=== PATIENT | male | born 1985 ===

== ENCOUNTER 2023-05-05 14:59 | Outpatient (AMB) | payer MEDICARE, MEDICAID, SELFPAY ==
--- NOTE | 2023-05-05 15:16 | MHC.PC.OV ---
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 Accompanied by: Self / Same As Patient Allergies No Known Allergies [No Known Allergies*] Allergy (Verified 05/05/23 16:01) Medication List - Last Reconciled 05/05/23 by Rajinder Osborn MD blood sugar diagnostic (Accu-Chek Jodi Plus test strips) Test once Daily blood-glucose meter (Accu-Chek Jodi Plus Meter) test once daily clonidine HCl 1 tablet in AM and 2 tablets at bedtime PO 2 times a day; 30 days lancets once a day or as directed - Dx: E11.9 (diabetes) metformin 1,000 mg PO BID multivitamin (Daily-Graham tablet) 1 tab PO DAILY sitagliptin phosphate (Januvia) 100 mg PO DAILY Tobacco use date assessed: 05/05/23 Dental Screening Dental Screen Date: 05/05/23 Did you have a dental visit in the last 12 months?: Yes Did you have a dental problem in the last 6 months where you did not have access to dental care?: No Was dental information given to patient?: Patient has dentist HPI pe HPI Details Patient comes in today for his annual physical examination - is accompanied as usual by his father Patient is reportedly doing well with no acute issues His father is aware that patient has gained a lot of weight since his last visit and states that he has recently switched patient back over to a diet that mostly consists of vegetables and beans and some proteins; patient hardly eats meat now and he would actually refuse to eat meat when he is given some States that his blood sugar readings in the morning would usually be around 110 to 115 mg/dl and in the afternoon they will drop down into the 90s Patient has no complaints of headaches, dizziness, chest pains or SOB; has had no recent cough/cold symptoms No nausea/vomiting, no abdominal pain and no change in bowel habits noted - bowel movements have been regular He reportedly sleeps well at night and per his father, now sleeps through the night mostly He has had no follow up labs done since 2019, as we have not been able to get any labs on patient (he is unable to cooperate for blood draw) unless he is sedated - we will usually time this, as in the past, for when he needs to be sedated for any procedures, including dental procedures PFSH Medical History Obesity (BMI 30-39.9) Autism Vitamin D deficiency Mixed hyperlipidemia Diabetes mellitus Surgical History No pertinent past surgical history Family History Father Hyperlipidemia Hypertension Diabetes Mother Prediabetes Hyperlipidemia Hypertension History of carpal tunnel release Social History Housing: House Alcohol intake: never Patient Tobacco Use Status: Never used Tobacco e-Cigarette/Vaping Use: Never Used Second Hand Smoke Exposure: No service: No Current occupational status: disabled Cognitive needs: Yes (Autism) Hearing needs: No Vision needs: No Questionnaire PHQ-9 Over the last 2 weeks, how often have you been bothered by any of the following problems? 1. Little interest or pleasure in doing things: not at all 2. Feeling down, depressed, or hopeless: not at all 3. Trouble falling or staying asleep, or sleeping too much: not at all 4. Feeling tired or having little energy: not at all 5. Poor appetite or overeating: not at all 6. Feeling bad about yourself - or that you are a failure or have let yourself or your family down: not at all 7. Trouble concentrating on things, such as reading the newspaper or watching television: not at all 8. Moving or speaking so slowly that other people could have noticed. Or the opposite - being so fidgety or restless that you have been moving around a lot more than usual: not at all 9. Thoughts that you would be better off or of hurting yourself in some way: not at all Total score: 0 Depression Screening Interpretation: Negative Depression Screening Done: Yes 80648 - PHQ-9 Billing: Yes Source: Developed by Drs. Mat Gates, Dora Ortiz, Sterling Gilliam and colleagues, with an educational brianna from [employer]. Thrive Questionnaire Date Thrive assessed: 05/05/23 I am a: Parent/Caregiver What is your living situation today?: I have a steady place to live Within the past 12 months, did the food you bought not last and you didn't have the money to get more?: Never true Within the past 12 months, did you worry whether your food would run out before you got money to buy more?: Never true Do you have trouble paying for medicines?: No Do you have trouble getting transportation to medical appointments?: No Do you have trouble paying your heating and electricity bill?: No Do you have trouble taking care of your child, family member or friend?: No Do you have trouble with day-to-day activities such as bathing, preparing meals, shopping, managing finances, etc.?: No Are you currently unemployed and looking for a job?: No Are you interested in more education?: No Please select the resources that you would like help with: None Currently or been in a relationship where the following occur: no concerns reported AUDIT C Alcohol Use Questionnaire (AUDIT-C) 1. How often do you have a drink containing alcohol?: Never 3. How often do you have six or more drinks on one occasion?: Never Total Score: 0 Score Reviewed/Action Taken: Yes JODI-7 AMB Questionnaire JODI-7 Date JODI - 7 assessed: 05/05/23 Feeling nervous, anxious, or on edge: 0 = Not at all Not being able to stop or control worryin = Not at all Worrying too much about different things: 0 = Not at all Trouble relaxin = Not at all Being so restless that it is hard to sit still: 0 = Not at all Becoming easily annoyed or irritable: 0 = Not at all Feeling afraid as if something awful might happen: 0 = Not at all Total JODI-7 score (0-4 normal; 5-9 mild; 10-14 moderate; 15-21 severe): 0 Source: Developed by Drs. Mat Gates, Dora Ortiz, Sterling Gilliam and colleagues, with an educational brianna from [employer]. Review of Systems Const Details: ROS is limited and information is provided primarily by patient's family as he is unable to verbalize or communicate appropriately due to his psychiatric and cognitive issues Denies chills, Denies fatigue, Denies fever(s) and Denies headache(s) ENT Denies dysphagia, Denies dizziness, Denies otalgia, Denies headache(s), Denies mouth lesions, Denies nasal discharge and Denies sore throat Card Denies chest pain, Denies palpitations and Denies dyspnea Resp Denies cough and Denies dyspnea GI Denies abdominal pain, Denies constipation, Denies dysphagia, Denies diarrhea, Denies nausea and Denies vomiting Denies dysuria, Denies nocturia and Denies urinary frequency Musc Denies abnormal gait, Denies joint swelling and Denies muscle weakness Skin/Breast Denies lesions and Denies rash Neuro Denies abnormal gait, Denies dizziness and Denies headache(s) Psych Details: is autistic Endo Denies fatigue and Denies palpitations Physical exam (Primary Care) Tobacco/Smoking Status: Tobacco use Status Tobacco use date assessed 05/05/23 05/05/23 15:19 Patient Tobacco Use Status Never used Tobacco 05/05/23 15:19 e-Cigarette/Vaping Use Never Used 05/05/23 15:19 PHQ-9: PHQ-9 Score PHQ-9: Total score 0 05/05/23 16:05 Depression Screening Interpretation: Negative Thrive Assessment: Date of Thrive Assessment Date Thrive assessed 05/05/23 05/05/23 15:19 Currently or been in a relationship where the following occur: no concerns reported Const Other: Physical exam is also limited to what patient will allow us to do; he is unable to fully cooperate with exam due to his cognitive and psychiatric issues General: no acute distress and alert HENMT Head: Yes normal to inspection Ears: TM's normal bilaterally and EAC's normal Eyes Conjunctivae: conjunctivae normal Sclerae: sclerae normal Neck Neck: Yes no lymphadenopathy and Yes supple Lymphatic: no lymphadenopathy noted Resp Auscultation: clear to auscultation bilaterally, no rales and no wheezes Cardio Rate: regular rate Rhythm: regular rhythm Heart sounds: no murmurs GI Palpation (GI): Soft to palpation and nontender Auscultation: normal bowel sounds Skin Lesions: no lesions Rashes: no rashes Neuro General: moves all extremities and no focal motor deficits Cognition (Neuro): abnormal cognition (is autistic) Gait exam (Neuro): Normal gait present Extrem General: Yes no clubbing, cyanosis or edema Results AMB Hemoglobin A1c AMB Hemoglobin A1c 6.0 % Last Edit by Bernabe Zimmer on 05/05/23 16:08 Assessment and Plan Assessment & Plan (1) Annual physical exam: Code(s): Z00.00 - Encounter for general adult medical examination without abnormal findings Plan: Has no follow up labs done in a few years now Will order these and try to get some labs done whenever he is scheduled to go under anesthesia for any procedures - family will notify us to place lab orders then Patient's family states that he is doing well and they have no acute concerns or issues regarding him at this time (2) Diabetes mellitus: Code(s): E11.9 - Type 2 diabetes mellitus without complications Qualifiers: Diabetes mellitus type: type 2 Diabetes mellitus terminal operations manager insulin use: without retirement use Diabetes mellitus complication status: without complication Qualified Code(s): E11.9 - Type 2 diabetes mellitus without complications Plan: Per patient's father, his FBS in the morning has been running mostly between 105 to 110 mg/dl lately In-office HgbA1c done today is at 6.0% (was at 5.4% a few months ago; HgbA1c reading was at 5.8% when previously checked in 2019) Reinforced diabetic diet Continue Metformin 1000 mg BID and Januvia 100 mg QD (Rx refilled) Follow up with endocrinology as scheduled (3) Mixed hyperlipidemia: Code(s): E78.2 - Mixed hyperlipidemia Plan: Reinforced low cholesterol diet Has not had any follow up labs done over the past few years now - patient is not able to cooperate for his lab draws and we can only get his labs done whenever he needs to be sedated for some procedure Family is aware to contact us for lab orders if he gets scheduled for any procedures in the future that he will be sedated for (4) Vitamin D deficiency: Code(s): E55.9 - Vitamin D deficiency, unspecified Plan: Will recheck his Vitamin D level whenever possible (5) Autism: Code(s): F84.0 - Autistic disorder Plan: Continue Clonidine 0.2 mg 1 tablet in AM and 2 tablets at bedtime Follow up with psychiatry as scheduled (6) Obesity (BMI 30-39.9): Code(s): E66.9 - Obesity, unspecified Plan: Reinforced diet/exercise as tolerated/lose weight - family is to help him with this Unable to weigh patient today as he was not willing to step on the scale Plan Follow up in 6 months Orders: Orders AMB Hemoglobin A1c Today Z13.9 - Encounter for screening, unspecified Medications: Refilled sitagliptin phosphate (Januvia) 100 mg PO DAILY 90 tabs 1RF E11.9 - Type 2 diabetes mellitus without complications Coding Level of Care Code Est Pt Prev Care 18-39y(07342) Diagnoses Annual physical exam Z00.00 Type 2 diabetes mellitus without complication, without long-term current use of insulin E11.9 Diabetes mellitus type: type 2 Diabetes mellitus retirement insulin use: without retirement use Diabetes mellitus complication status: without complication Mixed hyperlipidemia E78.2 Vitamin D deficiency E55.9 Autism F84.0 Obesity (BMI 30-39.9) E66.9
== END 2023-05-05 16:09 | disposition home or self-care (01) ==
PROVIDERS: Visit Provider Internal Medicine
DX: Z00.00 Encounter for general adult medical examination without abnormal findings (principal); E11.9 Type 2 diabetes mellitus without complications; E78.2 Mixed hyperlipidemia; E55.9 Vitamin D deficiency, unspecified; F84.0 Autistic disorder
CPT/HCPCS: 83036; 99395

== ENCOUNTER 2023-11-05 15:10 | Outpatient (AMB) | payer MEDICARE, MEDICAID, SELFPAY ==
--- NOTE | 2023-11-05 15:22 | MHC.PC.OV ---
Vital Signs 11/05/23 15:24 Height 5 ft 2.99 in Weight 250 lb BMI 44.3 Pulse 100 Pulse Source Pulse Oximeter Pulse Oximetry (%) 97 Oxygen Delivery Method Room Air Intake Visit Reasons: DM, hyperlipidemia, autism Real Estate Office Manager Required: No Accompanied by: Father Allergies No Known Allergies [No Known Allergies*] Allergy (Verified 11/05/23 15:44) Medication List - Last Reconciled 11/05/23 by Rajinder Osborn MD blood sugar diagnostic (FreeStyle Lite Strips) As directed clonidine HCl 1 tablet in AM and 2 tablets at bedtime PO 2 times a day; 30 days lancets once a day or as directed - Dx: E11.9 (diabetes) lancets (FreeStyle Lancets) USE TO TEST BLOOD SUGAR TWICE DAILY DIRECTED metformin 1,000 mg PO BID multivitamin (Daily-Graham tablet) 1 tab PO DAILY sitagliptin phosphate (Januvia) 100 mg PO DAILY Tobacco use date assessed: 11/05/23 Dental Screening Dental Screen Date: 11/05/23 Did you have a dental visit in the last 12 months?: Yes Did you have a dental problem in the last 6 months where you did not have access to dental care?: No Was dental information given to patient?: Patient has dentist HPI DM, hyperlipidemia, autism HPI Details Patient comes in today for his follow up visit - he is accompanied, as usual, by his father, who is his HCP Patient is reportedly doing well with no acute issues His father states that patient has had no complaints of headaches, dizziness, chest pains or SOB lately and he's had no recent cough/cold symptoms No nausea/vomiting, no abdominal pain and no change in bowel habits noted - his bowel movements have been regular He's had no follow up labs done since 2019, as we have not been able to get any labs on patient (he is unable to cooperate for blood draw) unless he is sedated - we will usually time this, as in the past, for when he needs to be sedated for any procedures, including dental procedures He needs his Metformin and Januvia Rx refilled today [facility] Medical History Obesity (BMI 30-39.9) Autism Vitamin D deficiency Mixed hyperlipidemia Diabetes mellitus Surgical History No pertinent past surgical history Family History Father Hyperlipidemia Hypertension Diabetes Mother Prediabetes Hyperlipidemia Hypertension History of carpal tunnel release Social History Housing: House Alcohol intake: never Patient Tobacco Use Status: Never used Tobacco e-Cigarette/Vaping Use: Never Used Second Hand Smoke Exposure: No service: No Current occupational status: disabled Cognitive needs: Yes (Autism) Hearing needs: No Vision needs: No Questionnaire PHQ-9 Over the last 2 weeks, how often have you been bothered by any of the following problems? 1. Little interest or pleasure in doing things: not at all 2. Feeling down, depressed, or hopeless: not at all 3. Trouble falling or staying asleep, or sleeping too much: not at all 4. Feeling tired or having little energy: not at all 5. Poor appetite or overeating: not at all 6. Feeling bad about yourself - or that you are a failure or have let yourself or your family down: not at all 7. Trouble concentrating on things, such as reading the newspaper or watching television: not at all 8. Moving or speaking so slowly that other people could have noticed. Or the opposite - being so fidgety or restless that you have been moving around a lot more than usual: not at all 9. Thoughts that you would be better off or of hurting yourself in some way: not at all Total score: 0 Depression Screening Interpretation: Negative Depression Screening Done: Yes 77480 - PHQ-9 Billing: Yes Source: Developed by Drs. Mat Gaets, Dora Ortiz, Sterling Gilliam and colleagues, with an educational brianna from [employer]. Thrive Questionnaire Date Thrive assessed: 11/05/23 I am a: Patient What is your living situation today?: I have a steady place to live Within the past 12 months, did the food you bought not last and you didn't have the money to get more?: Never true Within the past 12 months, did you worry whether your food would run out before you got money to buy more?: Never true Do you have trouble paying for medicines?: No Do you have trouble getting transportation to medical appointments?: No Do you have trouble paying your heating and electricity bill?: No Do you have trouble taking care of your child, family member or friend?: No Do you have trouble with day-to-day activities such as bathing, preparing meals, shopping, managing finances, etc.?: No Are you currently unemployed and looking for a job?: No Are you interested in more education?: No Please select the resources that you would like help with: None Currently or been in a relationship where the following occur: no concerns reported THRIVE Score: 0 AUDIT C Alcohol Use Questionnaire (AUDIT-C) 1. How often do you have a drink containing alcohol?: Never 3. How often do you have six or more drinks on one occasion?: Never Total Score: 0 Score Reviewed/Action Taken: Yes JODI-7 AMB Questionnaire JODI-7 Date JODI - 7 assessed: 11/05/23 Feeling nervous, anxious, or on edge: 0 = Not at all Not being able to stop or control worryin = Not at all Worrying too much about different things: 0 = Not at all Trouble relaxin = Not at all Being so restless that it is hard to sit still: 0 = Not at all Becoming easily annoyed or irritable: 0 = Not at all Feeling afraid as if something awful might happen: 0 = Not at all Total JODI-7 score (0-4 normal; 5-9 mild; 10-14 moderate; 15-21 severe): 0 Source: Developed by Drs. Mat Gates, Dora Otriz, Sterling Gilliam and colleagues, with an educational brianna from [employer]. JODI-7 Assessment Billing JODI-7 Assessment Tool: JODI-7 Assessment 56555 Review of Systems Const Details: ROS is limited and information is provided primarily by patient's family as he is unable to verbalize or communicate appropriately due to his psychiatric and cognitive issues Denies chills, Denies fatigue, Denies fever(s) and Denies headache(s) ENT Denies dysphagia, Denies dizziness, Denies headache(s), Denies nasal discharge and Denies sore throat Card Denies chest pain, Denies palpitations and Denies dyspnea Resp Denies cough and Denies dyspnea GI Denies abdominal pain, Denies constipation, Denies dysphagia, Denies diarrhea, Denies nausea and Denies vomiting Denies dysuria, Denies nocturia and Denies urinary frequency Musc Denies abnormal gait, Denies joint swelling and Denies muscle weakness Skin/Breast Denies lesions and Denies rash Neuro Denies abnormal gait, Denies dizziness and Denies headache(s) Psych Details: is autistic Endo Denies fatigue and Denies palpitations Physical exam (Primary Care) Vital Signs: Last Vital Signs Pulse 100 11/05/23 15:24 Pulse Ox 97 11/05/23 15:24 Oxygen Delivery Method Room Air 11/05/23 15:24 BMI result Body Mass Index 44.3 Tobacco/Smoking Status: Tobacco use Status Tobacco use date assessed 11/05/23 11/05/23 15:32 Patient Tobacco Use Status Never used Tobacco 11/05/23 15:22 e-Cigarette/Vaping Use Never Used 11/05/23 15:22 PHQ-9: PHQ-9 Score PHQ-9: Total score 0 11/05/23 15:53 Depression Screening Interpretation: Negative Thrive Assessment: Date of Thrive Assessment Date Thrive assessed 11/05/23 11/05/23 15:32 Currently or been in a relationship where the following occur: no concerns reported Const Other: Physical exam is also limited to what patient will allow us to do; he is unable to fully cooperate with exam due to his cognitive and psychiatric issues General: no acute distress and alert HENMT Head: Yes normal to inspection Ears: TM's normal bilaterally and EAC's normal Eyes Conjunctivae: conjunctivae normal Sclerae: sclerae normal Neck Neck: Yes no lymphadenopathy and Yes supple Lymphatic: no lymphadenopathy noted Resp Auscultation: clear to auscultation bilaterally, no rales and no wheezes Cardio Rate: regular rate Rhythm: regular rhythm Heart sounds: no murmurs GI Palpation (GI): Soft to palpation and nontender Auscultation: normal bowel sounds Skin Lesions: no lesions Rashes: no rashes Neuro General: moves all extremities and no focal motor deficits Cognition (Neuro): abnormal cognition (is autistic) Gait exam (Neuro): Normal gait present Extrem General: Yes no clubbing, cyanosis or edema Results AMB Hemoglobin A1c AMB Hemoglobin A1c 6.9 % Last Edit by CRICKET Pavon on 11/05/23 15:56 Assessment and Plan Assessment & Plan (1) Diabetes mellitus: Code(s): E11.9 - Type 2 diabetes mellitus without complications Qualifiers: Diabetes mellitus type: type 2 Diabetes mellitus exterminator helper termite insulin use: without exterminator helper termite use Diabetes mellitus complication status: without complication Qualified Code(s): E11.9 - Type 2 diabetes mellitus without complications Plan: In-office HgbA1c done today is at 6.9% (was at 6.0% a few months ago) - goal is at least <7.0% Reinforced diabetic diet Continue Metformin 1000 mg BID and Januvia 100 mg QD (Rx refilled) Follow up with endocrinology as scheduled (2) Mixed hyperlipidemia: Code(s): E78.2 - Mixed hyperlipidemia Plan: Reinforced low cholesterol diet Has not had any follow up labs done over the past few years now - patient is not able to cooperate for his lab draws and we can only get his labs done whenever he needs to be sedated for some procedure Family is aware to contact us for lab orders if he gets scheduled for any procedures in the future that he will be sedated for (3) Vitamin D deficiency: Code(s): E55.9 - Vitamin D deficiency, unspecified Plan: Will recheck his Vitamin D level whenever it is possible to get labs done on him (4) Autism: Code(s): F84.0 - Autistic disorder Plan: Continue Clonidine 0.2 mg 1 tablet in AM and 2 tablets at bedtime Follow up with psychiatry as scheduled (5) Obesity (BMI 30-39.9): Code(s): E66.9 - Obesity, unspecified Plan: Reinforced diet/exercise as tolerated/lose weight - family is to help him with this Unable to weigh patient today as he was not willing to step on the scale Plan To return in 6 months for his next annual physical examination Orders: Orders AMB Hemoglobin A1c Today E11.9 - Type 2 diabetes mellitus without complications Medications: Refilled sitagliptin phosphate (Januvia) 100 mg PO DAILY 90 tabs 1RF E11.9 - Type 2 diabetes mellitus without complications metformin 1,000 mg PO BID 180 tabs 1RF E11.9 - Type 2 diabetes mellitus without complications Coding Level of Care Code Est Pt Level 3 (09813) Diagnoses Type 2 diabetes mellitus without complication, without long-term current use of insulin E11.9 Diabetes mellitus type: type 2 Diabetes mellitus exterminator helper termite insulin use: without exterminator helper termite use Diabetes mellitus complication status: without complication Mixed hyperlipidemia E78.2 Vitamin D deficiency E55.9 Autism F84.0 Obesity (BMI 30-39.9) E66.9 Additional Codes JODI-7 Assessment Billing - JODI-7 Assessment Tool: JODI-7 Assessment [id number] ([id number])
[2023-11-05 15:24] VITALS: PULSE 100; O2SAT 97; BMI 44.3
== END 2023-11-05 16:04 | disposition home or self-care (01) ==
PROVIDERS: PCP Internal Medicine; Visit Provider Internal Medicine
DX: E11.69 Type 2 diabetes mellitus with other specified complication (principal); Z68.41 Body mass index [BMI] 40.0-44.9, adult; E78.2 Mixed hyperlipidemia; E66.9 Obesity, unspecified; E55.9 Vitamin D deficiency, unspecified; F84.0 Autistic disorder
CPT/HCPCS: 83036; 99213

== ENCOUNTER 2024-05-08 12:21 | Outpatient (AMB) | payer MEDICARE, MEDICAID, SELFPAY ==
[2024-05-08 12:20] VITALS: PULSE 112; O2SAT 94; BMI 46.1
--- NOTE | 2024-05-08 12:20 | MHC.PC.OV ---
Vital Signs 05/08/24 12:20 Height 5 ft 2.99 in Weight 260 lb BMI 46.1 Pulse 112 H Pulse Source Pulse Oximeter Pulse Oximetry (%) 94 Oxygen Delivery Method Room Air Intake Visit Reasons: pe Intake Note: Patient is here today for a physical. Shake Packer Required: No Accompanied by: Self / Same As Patient Allergies No Known Allergies [No Known Allergies*] Allergy (Verified 05/08/24 12:42) Medication List - Last Reconciled 05/08/24 by Rajinder Osborn MD blood sugar diagnostic (FreeStyle Lite Strips) As directed clonidine HCl 1 tablet in AM and 2 tablets at bedtime PO 2 times a day; 30 days lancets once a day or as directed - Dx: E11.9 (diabetes) lancets (FreeStyle Lancets) USE TO TEST BLOOD SUGAR TWICE DAILY DIRECTED metformin 1,000 mg PO BID multivitamin (Daily-Graham tablet) 1 tab PO DAILY sitagliptin phosphate (Januvia) 100 mg PO DAILY Tobacco use date assessed: 11/05/23 Dental Screening Dental Screen Date: 11/05/23 HPI pe HPI Details Patient comes in today for his annual physical examination - is accompanied as usual by his father His father states that patient is doing well overall and that his FBS earlier this morning around 5:30 am was at 127 mg/dl We have not been able to get patient to go for labs over the years other than an occasional in-office HgbA1c if he allows it due to his psychiatric/cognitive dysfunction He appears very preoccupied and obsessed with a loose wire hanging out from the exam table in the exam room today and will not calm down or quiet down until the wire is put away properly and out of sight Patient is otherwise reportedly doing well, per his father States that he spent a lot of time in the pool during the summer but now that the weather is colder and the pools are closed, he spends most of his time in his bedroom playing on his own (no electronics or computers) Patient has not had any issues with acute headaches or dizziness lately Has had no complaints of chest pains and has not been noticed to have any SOB or respiratory issues States that patient eats well and has not had any abdominal complaints; he reportedly moves his bowels regularly and has had no acute urinary issues He will need his Metformin and Januvia Rx refilled today [facility] Medical History (Updated 05/08/24 @ 12:54 by Rajinder Osborn MD) Morbid obesity with BMI of 45.0-49.9, adult Obesity (BMI 30-39.9) Autism Vitamin D deficiency Mixed hyperlipidemia Diabetes mellitus Surgical History No pertinent past surgical history Family History Father Hyperlipidemia Hypertension Diabetes Mother Prediabetes Hyperlipidemia Hypertension History of carpal tunnel release Social History Housing: House Alcohol intake: never Patient Tobacco Use Status: Never used Tobacco e-Cigarette/Vaping Use: Never Used Second Hand Smoke Exposure: No service: No Current occupational status: disabled Cognitive needs: Yes (Autism) Hearing needs: No Vision needs: No Questionnaire Thrive Questionnaire Date Thrive assessed: 11/05/23 JODI-7 AMB Questionnaire JODI-7 Date JODI - 7 assessed: 11/05/23 Source: Developed by Drs. Mat Gates, Dora Ortiz, Sterling Gilliam and colleagues, with an educational brianna from [employer]. Review of Systems Const Details: ROS is limited and information is provided primarily by patient's father/family as he is unable to verbalize or communicate appropriately due to his psychiatric and cognitive issues Denies chills, Denies difficulty sleeping, Denies fatigue, Denies fever(s) and Denies headache(s) ENT Denies dysphagia, Denies dizziness, Denies otalgia, Denies headache(s), Denies mouth lesions, Denies nasal discharge and Denies sore throat Card Denies chest pain, Denies palpitations and Denies dyspnea Resp Denies chest congestion, Denies cough and Denies dyspnea GI Denies abdominal pain, Denies constipation, Denies dysphagia, Denies diarrhea, Denies nausea and Denies vomiting Denies dysuria, Denies nocturia and Denies urinary frequency Musc Denies abnormal gait, Denies joint swelling and Denies muscle weakness Skin/Breast Denies lesions and Denies rash Neuro Denies abnormal gait, Denies behavioral changes, Denies dizziness and Denies headache(s) Psych Details: is autistic Denies behavioral changes Endo Denies fatigue and Denies palpitations Physical exam (Primary Care) Vital Signs: Last Vital Signs Pulse 112 H 05/08/24 12:20 Pulse Ox 94 05/08/24 12:20 Oxygen Delivery Method Room Air 05/08/24 12:20 BMI result Body Mass Index 46.1 Tobacco/Smoking Status: Tobacco use Status Tobacco use date assessed 11/05/23 05/08/24 12:25 Patient Tobacco Use Status Never used Tobacco 05/08/24 12:25 e-Cigarette/Vaping Use Never Used 05/08/24 12:25 Thrive Assessment: Date of Thrive Assessment Date Thrive assessed 11/05/23 05/08/24 12:25 Const Other: Physical exam is also limited to what patient will allow us to do; he is unable to fully cooperate with exam due to his cognitive and psychiatric issues General: no acute distress and alert Limitations: behavioral limitations (is autistic) HENMT Head: Yes normal to inspection Ears: TM's normal bilaterally and EAC's normal Eyes Conjunctivae: conjunctivae normal Sclerae: sclerae normal Neck Neck: Yes no lymphadenopathy and Yes supple Lymphatic: no lymphadenopathy noted Resp Auscultation: clear to auscultation bilaterally, no rales and no wheezes Cardio Rate: regular rate Rhythm: regular rhythm Heart sounds: no murmurs GI Palpation (GI): Soft to palpation and nontender Auscultation: normal bowel sounds Skin Lesions: no lesions Rashes: no rashes Neuro General: moves all extremities and no focal motor deficits Cognition (Neuro): abnormal cognition (is autistic) Gait exam (Neuro): Normal gait present Extrem General: Yes no clubbing, cyanosis or edema Coding Level of Care Code Est Pt Prev Care 40-64y(78200) Diagnoses Annual physical exam Z00.00 Type 2 diabetes mellitus without complication, without long-term current use of insulin E11.9 Diabetes mellitus type: type 2 Diabetes mellitus terminal carman insulin use: without usp use Diabetes mellitus complication status: without complication Mixed hyperlipidemia E78.2 Vitamin D deficiency E55.9 Autism F84.0 Morbid obesity with BMI of 45.0-49.9, adult E66.01; Z68.42 Assessment & Plan Assessment & Plan (1) Annual physical exam: Code(s): Z00.00 - Encounter for general adult medical examination without abnormal findings Category: Medical Plan: We have not been able to get any labs done on patient over the years as he is unable to cooperate due to his cognitive issues - he would not allow any blood draw and is not able to sit still for labs to be drawn (2) Diabetes mellitus: Code(s): E11.9 - Type 2 diabetes mellitus without complications Category: Medical Qualifiers: Diabetes mellitus type: type 2 Diabetes mellitus terminal carman insulin use: without terminal carman use Diabetes mellitus complication status: without complication Qualified Code(s): E11.9 - Type 2 diabetes mellitus without complications Plan: He would not allow in-office HgbA1c to be done today; this was at 6.9% back in the spring of this year and 6.0% last year - goal is at least <7.0% Reinforced diabetic diet Continue Metformin 1000 mg BID and Januvia 100 mg QD (Rx refilled) Follow up with endocrinology as scheduled (3) Mixed hyperlipidemia: Code(s): E78.2 - Mixed hyperlipidemia Category: Medical Plan: Reinforced low cholesterol diet Has not had any follow up labs done over the past few years, as patient is not able to cooperate for his lab draws and we can only get his labs done whenever he needs to be sedated for some procedure Family is aware to contact us for lab orders if he gets scheduled for any procedures in the future that he will be sedated for (4) Vitamin D deficiency: Code(s): E55.9 - Vitamin D deficiency, unspecified Category: Medical Plan: Will recheck his Vitamin D level whenever it is possible to get labs done on him (5) Autism: Code(s): F84.0 - Autistic disorder Category: Medical Plan: Continue Clonidine 0.2 mg 1 tablet in AM and 2 tablets at bedtime Follow up with psychiatry as scheduled (6) Morbid obesity with BMI of 45.0-49.9, adult: Code(s): E66.01 - Morbid (severe) obesity due to excess calories; Z68.42 - Body mass index [BMI] 45.0-49.9, adult Category: Medical Plan: Reinforced diet/exercise as tolerated/lose weight - have reminded his family to help him with this as he himself is not expected to be able to do on his own due to his cognitive and psychiatric issues and he has gained weight again over the past year or so Plan Follow up in 6 months Medications: Refilled metformin 1,000 mg PO BID 180 tabs 1RF E11.9 - Type 2 diabetes mellitus without complications sitagliptin phosphate (Januvia) 100 mg PO DAILY 90 tabs 1RF E11.9 - Type 2 diabetes mellitus without complications
== END 2024-05-08 12:45 | disposition home or self-care (01) ==
LOC: HO.HMCH 12:21
PROVIDERS: PCP Internal Medicine; Visit Provider Internal Medicine
DX: Z00.00 Encounter for general adult medical examination without abnormal findings (principal); E11.9 Type 2 diabetes mellitus without complications; E66.01 Morbid (severe) obesity due to excess calories; Z68.42 Body mass index [BMI] 45.0-49.9, adult; E78.2 Mixed hyperlipidemia; E55.9 Vitamin D deficiency, unspecified; F84.0 Autistic disorder

== ENCOUNTER → 2024-05-08 12:21 | Outpatient (BNVA) | payer MEDICARE, MEDICAID, SELFPAY | PROVIDERS: PCP Internal Medicine; Visit Provider Internal Medicine | DX: Z00.00 Encounter for general adult medical examination without abnormal findings (principal); E11.9 Type 2 diabetes mellitus without complications; E78.2 Mixed hyperlipidemia; E55.9 Vitamin D deficiency, unspecified; F84.0 Autistic disorder; E66.01 Morbid (severe) obesity due to excess calories; Z68.42 Body mass index [BMI] 45.0-49.9, adult; Z71.3 Dietary counseling and surveillance | CPT/HCPCS: 99396 ==

== ENCOUNTER 2024-11-06 10:04 | Outpatient (AMB) | payer MEDICARE, MEDICAID, SELFPAY ==
[2024-11-06 10:07] VITALS: BMI 48.6
--- NOTE | 2024-11-06 10:07 | A.OFFPC_ITS ---
Vital Signs 11/06/24 10:07 Height 5 ft 2 in Weight 266 lb BMI 48.6 Intake Visit Reasons: DM, hyperlipidemia, autism Allergies No Known Allergies [No Known Allergies*] Allergy (Verified 11/06/24 10:30) Medication List - Last Reconciled 11/06/24 by Rajinder Osborn MD blood sugar diagnostic (FreeStyle Lite Strips) As directed TWICE A DAY clonidine HCl 1 tablet in AM and 2 tablets at bedtime PO 2 times a day; 30 days lancets once a day or as directed - Dx: E11.9 (diabetes) lancets (FreeStyle Lancets) USE TO TEST BLOOD SUGAR TWICE DAILY DIRECTED metformin 1,000 mg PO BID multivitamin (Daily-Graham tablet) 1 tab PO DAILY sitagliptin phosphate (Januvia) 100 mg PO DAILY Tobacco use date assessed: 11/06/24 Dental Screening Dental Screen Date: 11/06/24 Did you have a dental visit in the last 12 months?: Yes Did you have a dental problem in the last 6 months where you did not have access to dental care?: No Was dental information given to patient?: Patient has dentist HPI DM, hyperlipidemia, autism HPI Details Patient comes in today for his follow up visit - is accompanied as usual by his father His father states that patient is doing well overall His father states that his blood sugar readings have been good overall but he has noticed that patient's blood sugar readings are often better in the afternoon than in the direct support professional - was at 127 mg/dl earlier this morning Patient is otherwise reportedly doing well, per his father States that he spends most of his time in his bedroom playing on his own (no electronics or computers) Patient has not had any issues with acute headaches or dizziness and he's had no complaints of any chest pains He has not had any SOB or respiratory issues/symptoms lately States that patient eats well and has not had any abdominal complaints; he reportedly moves his bowels regularly We have not been able to get patient to go for labs over the years other than an occasional in-office HgbA1c if he allows it due to his psychiatric/cognitive dysfunction COUNTS INCLUDE 234 BEDS AT THE [facility] Medical History Morbid obesity with BMI of 45.0-49.9, adult Obesity (BMI 30-39.9) Autism Vitamin D deficiency Mixed hyperlipidemia Diabetes mellitus Surgical History No pertinent past surgical history Family History Father Hyperlipidemia Hypertension Diabetes Mother Prediabetes Hyperlipidemia Hypertension History of carpal tunnel release Social History Housing: House Alcohol intake: never Patient Tobacco Use Status: Never used Tobacco Tobacco use type: Cigarette e-Cigarette/Vaping Use: Never Used Second Hand Smoke Exposure: No service: No Current occupational status: disabled Cognitive needs: Yes (Autism) Hearing needs: No Vision needs: No Questionnaire PHQ-9 Over the last 2 weeks, how often have you been bothered by any of the following problems? 1. Little interest or pleasure in doing things: not at all 2. Feeling down, depressed, or hopeless: not at all 3. Trouble falling or staying asleep, or sleeping too much: not at all 4. Feeling tired or having little energy: not at all 5. Poor appetite or overeating: not at all 6. Feeling bad about yourself - or that you are a failure or have let yourself or your family down: not at all 7. Trouble concentrating on things, such as reading the newspaper or watching television: not at all 8. Moving or speaking so slowly that other people could have noticed. Or the opposite - being so fidgety or restless that you have been moving around a lot more than usual: not at all 9. Thoughts that you would be better off or of hurting yourself in some way: not at all Total score: 0 Depression Screening Interpretation: Negative Depression Screening Done: Yes 71440 - PHQ-9 Billing: Yes Source: Developed by Drs. Mat Gates, Dora Ortiz, Sterling Gilliam and colleagues, with an educational brianna from [employer]. Thrive Questionnaire Date Thrive assessed: 11/06/24 I am a: Parent/Caregiver What is your living situation today?: I have a steady place to live Within the past 12 months, did the food you bought not last and you didn't have the money to get more?: Never true Within the past 12 months, did you worry whether your food would run out before you got money to buy more?: Never true Do you have trouble paying for medicines?: No Do you have trouble getting transportation to medical appointments?: No Do you have trouble paying your heating and electricity bill?: No Do you have trouble taking care of your child, family member or friend?: No Do you have trouble with day-to-day activities such as bathing, preparing meals, shopping, managing finances, etc.?: No Are you currently unemployed and looking for a job?: No Are you interested in more education?: No Currently or been in a relationship where the following occur: I choose not to answer THRIVE Score: 0 AUDIT C Alcohol Use Questionnaire (AUDIT-C) 1. How often do you have a drink containing alcohol?: Never 3. How often do you have six or more drinks on one occasion?: Never Total Score: 0 Score Reviewed/Action Taken: Yes JODI-7 AMB Questionnaire JODI-7 Date JODI - 7 assessed: 11/06/24 Feeling nervous, anxious, or on edge: 1 = Several days Not being able to stop or control worryin = Not at all Worrying too much about different things: 0 = Not at all Trouble relaxin = Several days Being so restless that it is hard to sit still: 1 = Several days Becoming easily annoyed or irritable: 1 = Several days Feeling afraid as if something awful might happen: 0 = Not at all Total JODI-7 score (0-4 normal; 5-9 mild; 10-14 moderate; 15-21 severe): 4 Source: Developed by Drs. Mat Gates, Dora Ortiz, Sterling Gilliam and colleagues, with an educational brianna from [employer]. JODI-7 Assessment Billing JODI-7 Assessment Tool: JODI-7 Assessment 98817 Review of Systems Const Details: ROS is limited and information is provided primarily by patient's father/family as he is unable to verbalize or communicate appropriately due to his psychiatric and cognitive issues Denies chills, Denies difficulty sleeping, Denies fatigue, Denies fever(s) and Denies headache(s) ENT Denies dysphagia, Denies dizziness, Denies otalgia, Denies headache(s), Denies neck pain, Denies odynophagia and Denies sore throat Card Denies chest pain, Denies palpitations and Denies dyspnea Resp Denies chest congestion, Denies cough and Denies dyspnea GI Denies abdominal pain, Denies constipation, Denies dysphagia, Denies diarrhea, Denies nausea, Denies odynophagia and Denies vomiting Denies dysuria, Denies nocturia and Denies urinary frequency Musc Denies abnormal gait, Denies back pain, Denies joint swelling, Denies muscle weakness and Denies neck pain Skin/Breast Denies lesions and Denies rash Neuro Denies abnormal gait, Denies behavioral changes, Denies dizziness and Denies headache(s) Psych Details: is autistic Denies behavioral changes Endo Denies fatigue and Denies palpitations Physical exam (Primary Care) BMI result Body Mass Index 48.6 Tobacco/Smoking Status: Tobacco use Status Tobacco use date assessed 11/06/24 11/06/24 10:12 Patient Tobacco Use Status Never used Tobacco 11/06/24 10:12 Tobacco use type Cigarette 11/06/24 10:12 e-Cigarette/Vaping Use Never Used 11/06/24 10:12 PHQ-9: PHQ-9 Score PHQ-9: Total score 0 11/06/24 10:39 Depression Screening Interpretation: Negative Thrive Assessment: Date of Thrive Assessment Date Thrive assessed 11/06/24 11/06/24 10:12 Currently or been in a relationship where the following occur: I choose not to answer Const Other: Physical exam is also limited to what patient will allow us to do; he is unable to fully cooperate with exam due to his cognitive and psychiatric issues General: no acute distress and alert Limitations: behavioral limitations (is autistic) [facility] Head: Yes normal to inspection Ears: TM's normal bilaterally and EAC's normal Eyes Conjunctivae: conjunctivae normal Sclerae: sclerae normal Neck Neck: Yes no lymphadenopathy and Yes supple Lymphatic: no lymphadenopathy noted Resp Auscultation: clear to auscultation bilaterally, no rales and no wheezes Cardio Rate: regular rate Rhythm: regular rhythm Heart sounds: no murmurs GI Palpation (GI): Soft to palpation and nontender Auscultation: normal bowel sounds Skin Rashes: no rashes Neuro General: moves all extremities and no focal motor deficits Cognition (Neuro): abnormal cognition (is autistic) Gait exam (Neuro): Normal gait present Extrem General: Yes no clubbing, cyanosis or edema Results AMB Hemoglobin A1c AMB Hemoglobin A1c 8.0 % Last Edit by RICHARD Reno on 11/06/24 10 :42 Coding Level of Care Code Est Pt Level 4 (62355) Diagnoses Type 2 diabetes mellitus without complication, without long-term current use of insulin E11.9 Diabetes mellitus type: type 2 Diabetes mellitus half-way insulin use: without half-way use Diabetes mellitus complication status: without complication Mixed hyperlipidemia E78.2 Vitamin D deficiency E55.9 Autism F84.0 Morbid obesity with BMI of 45.0-49.9, adult E66.01; Z68.42 Additional Codes JODI-7 Assessment Billing - JODI-7 Assessment Tool: JODI-7 Assessment 17722 ([id number]) PHQ-9 - 13939 - PHQ-9 Billing: Yes ([id number]) Assessment & Plan Assessment & Plan (1) Diabetes mellitus: Code(s): E11.9 - Type 2 diabetes mellitus without complications Category: Medical Qualifiers: Diabetes mellitus type: type 2 Diabetes mellitus half-way insulin use: without half-way use Diabetes mellitus complication status: without complication Qualified Code(s): E11.9 - Type 2 diabetes mellitus without complications Plan: In-office HgbA1c done today is at 8.0%; this was at 6.9% a year ago in October 2023 and 6.0% a couple of years ago - goal is at least <7.0% Reinforced diabetic diet Continue Metformin 1000 mg BID and Januvia 100 mg QD Will start him additionally on Glimepiride 2 mg Q AM (2) Mixed hyperlipidemia: Code(s): E78.2 - Mixed hyperlipidemia Category: Medical Plan: Reinforced low cholesterol diet Has not had any follow up labs done over the past few years, as patient is not able to cooperate for his lab draws and we can only get his labs done whenever he needs to be sedated for some procedure Family is aware to contact us for lab orders if he gets scheduled for any procedures in the future that he will need to be sedated for (3) Vitamin D deficiency: Code(s): E55.9 - Vitamin D deficiency, unspecified Category: Medical Plan: Will recheck his Vitamin D level whenever it is possible to get labs done on him (4) Autism: Code(s): F84.0 - Autistic disorder Category: Medical Plan: Continue Clonidine 0.2 mg 1 tablet in AM and 2 tablets at bedtime Follow up with psychiatry as scheduled (5) Morbid obesity with BMI of 45.0-49.9, adult: Code(s): E66.01 - Morbid (severe) obesity due to excess calories; Z68.42 - Body mass index [BMI] 45.0-49.9, adult Category: Medical Plan: Reinforced diet/exercise as tolerated/lose weight - have reminded his family to help him with this as he himself is not expected to be able to do on his own due to his cognitive and psychiatric issues Plan To return in 6 months for his next annual physical examination Orders: Orders AMB Hemoglobin A1c Today Z13.9 - Encounter for screening, unspecified Medications: New glimepiride administer with breakfast 2 mg PO QAM 90 days 90 tabs 1RF
== END 2024-11-06 10:40 | disposition home or self-care (01) ==
LOC: HO.HMCH 10:04
PROVIDERS: PCP Internal Medicine; Visit Provider Internal Medicine
DX: E11.9 Type 2 diabetes mellitus without complications (principal); E66.01 Morbid (severe) obesity due to excess calories; Z68.42 Body mass index [BMI] 45.0-49.9, adult; E78.2 Mixed hyperlipidemia; E55.9 Vitamin D deficiency, unspecified; F84.0 Autistic disorder

== ENCOUNTER → 2024-11-06 10:04 | Outpatient (BNVA) | payer MEDICARE, MEDICAID, SELFPAY | PROVIDERS: PCP Internal Medicine; Visit Provider Internal Medicine | DX: E11.9 Type 2 diabetes mellitus without complications (principal); E78.2 Mixed hyperlipidemia; E55.9 Vitamin D deficiency, unspecified; F84.0 Autistic disorder; E66.01 Morbid (severe) obesity due to excess calories; Z68.42 Body mass index [BMI] 45.0-49.9, adult; Z71.3 Dietary counseling and surveillance | CPT/HCPCS: 83036; 96127; 99212 ==

== ENCOUNTER 2025-04-27 09:10 | Outpatient (AMB) | payer MEDICARE, MEDICAID, SELFPAY ==
[2025-04-27 09:12] VITALS: BP 122/80; PULSE 105; O2SAT 96; BMI 48.5
--- NOTE | 2025-04-27 09:12 | A.OFFPC_ITS ---
Vital Signs 04/27/25 09:12 Height 5 ft 2 in Weight 265 lb BMI 48.5 BP 122/80 Blood Pressure Location Lt brachial Position Sitting Pulse 105 H Pulse Source Pulse Oximeter Pulse Oximetry (%) 96 Oxygen Delivery Method Room Air Intake Visit Reasons: Pain in testicles Stylist Assistant Required: No Accompanied by: Father Allergies No Known Allergies (No Known Allergies*) Allergy (Verified 04/27/25 09:36) Medication List - Last Reconciled 04/27/25 by Rajinder Osborn MD blood sugar diagnostic (FreeStyle Lite Strips) As directed TWICE A DAY clonidine HCl 1 tablet in AM and 2 tablets at bedtime PO 2 times a day; 30 days glimepiride 2 mg PO QAM 90 days lancets once a day or as directed - Dx: E11.9 (diabetes) lancets (FreeStyle Lancets) USE TO TEST BLOOD SUGAR TWICE DAILY DIRECTED metformin 1,000 mg PO BID multivitamin (Daily-Graham tablet) 1 tab PO DAILY sitagliptin phosphate (Januvia) 100 mg PO DAILY Tobacco use date assessed: 04/27/25 Dental Screening Dental Screen Date: 04/27/25 Did you have a dental visit in the last 12 months?: Yes Did you have a dental problem in the last 6 months where you did not have access to dental care?: No Was dental information given to patient?: Patient has dentist HPI Pain in testicles HPI Details Patient is brought in today by his family for further evaluation of left testicular issues His father states that for the past 4 to 5 days, patient appears to be experiencing some pain over his left testicle as he has been refusing to let his father touch his left testicular area when his father is giving him a shower and helping him wash his private area They have also noticed that patient has been walking with a wide-based gait over the past few days and tends to sit near the edge of the chair and that all of these seem to support their suspicion that his left testicular area is bothering him They have not noticed any unusual appearance or odor to his urine and patient does not appear to be experiencing any problems urinating He has not had any fever or chills No other acute complaints or symptoms are noted [facility] Medical History Morbid obesity with BMI of 45.0-49.9, adult Obesity (BMI 30-39.9) Autism Vitamin D deficiency Mixed hyperlipidemia Diabetes mellitus Surgical History No pertinent past surgical history Family History Father Hyperlipidemia Hypertension Diabetes Mother Prediabetes Hyperlipidemia Hypertension History of carpal tunnel release Social History Housing: House Alcohol intake: never Patient Tobacco Use Status: Never used Tobacco Tobacco use type: Cigarette e-Cigarette/Vaping Use: Never Used Second Hand Smoke Exposure: No service: No Current occupational status: disabled Cognitive needs: Yes (Autism) Hearing needs: No Vision needs: No Questionnaire PHQ-9 Over the last 2 weeks, how often have you been bothered by any of the following problems? 1. Little interest or pleasure in doing things: several days 2. Feeling down, depressed, or hopeless: not at all 3. Trouble falling or staying asleep, or sleeping too much: not at all 4. Feeling tired or having little energy: not at all 5. Poor appetite or overeating: not at all 6. Feeling bad about yourself - or that you are a failure or have let yourself or your family down: not at all 7. Trouble concentrating on things, such as reading the newspaper or watching television: not at all 8. Moving or speaking so slowly that other people could have noticed. Or the opposite - being so fidgety or restless that you have been moving around a lot more than usual: not at all 9. Thoughts that you would be better off or of hurting yourself in some way: not at all Total score: 1 Depression Screening Interpretation: Negative Depression Screening Done: Yes 60438 - PHQ-9 Billing: Yes Source: Developed by Drs. Mat Gates, Dora Ortiz, Sterling Gilliam and colleagues, with an educational brianna from [employer]. Thrive Questionnaire Date Thrive assessed: 11/06/24 I am a: Patient What is your living situation today?: I have a steady place to live Within the past 12 months, did the food you bought not last and you didn't have the money to get more?: I choose not to answer this question Within the past 12 months, did you worry whether your food would run out before you got money to buy more?: I choose not to answer this question Do you have trouble paying for medicines?: No Do you have trouble getting transportation to medical appointments?: No Do you have trouble paying your heating and electricity bill?: No Do you have trouble taking care of your child, family member or friend?: No Do you have trouble with day-to-day activities such as bathing, preparing meals, shopping, managing finances, etc.?: No Are you currently unemployed and looking for a job?: Yes Are you interested in more education?: No Please select the resources that you would like help with: None Currently or been in a relationship where the following occur: No concerns reported THRIVE Score: 0 AUDIT C Alcohol Use Questionnaire (AUDIT-C) 1. How often do you have a drink containing alcohol?: Never 3. How often do you have six or more drinks on one occasion?: Never Total Score: 0 Score Reviewed/Action Taken: Yes JODI-7 AMB Questionnaire JODI-7 Date JODI - 7 assessed: 11/06/24 Feeling nervous, anxious, or on edge: 0 = Not at all Not being able to stop or control worryin = Not at all Worrying too much about different things: 0 = Not at all Trouble relaxin = Not at all Being so restless that it is hard to sit still: 0 = Not at all Becoming easily annoyed or irritable: 0 = Not at all Feeling afraid as if something awful might happen: 0 = Not at all Total JODI-7 score (0-4 normal; 5-9 mild; 10-14 moderate; 15-21 severe): 0 Source: Developed by Drs. Mat Gates, Dora Ortiz, Sterling Gilliam and colleagues, with an educational brianna from [employer]. Review of Systems Const Details: ROS is limited and information is provided primarily by patient's father/family as he is unable to verbalize or communicate appropriately due to his psychiatric and cognitive issues Denies chills, Denies difficulty sleeping, Denies fatigue, Denies fever(s) and Denies headache(s) ENT Denies dysphagia, Denies dizziness, Denies otalgia, Denies headache(s), Denies neck pain and Denies sore throat Card Denies chest pain, Denies palpitations and Denies dyspnea Resp Denies chest congestion, Denies cough and Denies dyspnea GI Denies abdominal pain, Denies constipation, Denies dysphagia, Denies diarrhea, Denies nausea and Denies vomiting Denies difficulty urinating, Denies dysuria, Denies nocturia, Denies scrotal swelling, Denies testicular mass, Reports testicular pain (left) and Denies urinary frequency Musc Denies back pain and Denies neck pain Skin/Breast Denies rash Neuro Denies behavioral changes, Denies dizziness and Denies headache(s) Psych Details: is autistic Denies behavioral changes Endo Denies fatigue and Denies palpitations Physical exam (Primary Care) Vital Signs: Last Vital Signs Pulse 105 H 04/27/25 09:12 BP 122/80 04/27/25 09:12 Pulse Ox 96 04/27/25 09:12 Oxygen Delivery Method Room Air 04/27/25 09:12 BMI result Body Mass Index 48.5 Tobacco/Smoking Status: Tobacco use Status Tobacco use date assessed 04/27/25 04/27/25 09:16 Patient Tobacco Use Status Never used Tobacco 04/27/25 09:16 Tobacco use type Cigarette 04/27/25 09:16 e-Cigarette/Vaping Use Never Used 04/27/25 09:16 PHQ-9: PHQ-9 Score PHQ-9: Total score 1 04/27/25 09:58 Depression Screening Interpretation: Negative Thrive Assessment: Date of Thrive Assessment Date Thrive assessed 11/06/24 04/27/25 09:16 Currently or been in a relationship where the following occur: No concerns reported Const Other: Physical exam is also limited to what patient will allow us to do; he is unable to fully cooperate with exam due to his cognitive and psychiatric issues General: no acute distress and alert Limitations: behavioral limitations (is autistic) Neck Neck: Yes supple and No lymphadenopathy Thyroid: Thyroid normal Resp Auscultation: clear to auscultation bilaterally, no rales and no wheezes Cardio Rate: regular rate Rhythm: regular rhythm Heart sounds: no murmurs GI Palpation (GI): Soft to palpation and nontender Auscultation: normal bowel sounds Other: NO testicular swelling or masses are noted but exam is limited by patient's inability to communicate; unable to completely assess for testicular tenderness on exam General: Yes no CVA tenderness Back/Spine/Pelvis Back: no CVA tenderness Thoracic/Lumbar Spine: No lumbar spinal tenderness Skin Rashes: no rashes Neuro General: moves all extremities and no focal motor deficits Cognition (Neuro): abnormal cognition (is autistic) Gait exam (Neuro): Normal gait present Extrem General: Yes no clubbing, cyanosis or edema Results AMB Hemoglobin A1c AMB Hemoglobin A1c 5.4 % Last Edit by RICHARD Reno on 04/27/25 10 :01 Coding Level of Care Code Est Pt Level 4 (34537) Diagnoses Left testicular pain N50.812 Type 2 diabetes mellitus without complication, without long-term current use of insulin E11.9 Diabetes mellitus type: type 2 Diabetes mellitus terminal block assembler insulin use: without terminal block assembler use Diabetes mellitus complication status: without complication Additional Codes PHQ-9 - 90680 - PHQ-9 Billing: Yes ([id number]) Assessment & Plan Assessment & Plan (1) Left testicular pain: Code(s): N50.812 - Left testicular pain Category: Medical Plan: A testicular US would be difficult to do at this time due to patient's inability to cooperate (is autistic) so we will go ahead treat him empirically for now with Bactrim DS BID x 10 days Will also have his family try to get him to do a U/A for further evaluation If he does not respond to empiric Tx (he has an appointment for PE next month on 05/20/2025 and we can reassess him then), then we will have to figure out how to get him to go for a testicular US for further evaluation (2) Diabetes mellitus: Code(s): E11.9 - Type 2 diabetes mellitus without complications Category: Medical Qualifiers: Diabetes mellitus type: type 2 Diabetes mellitus snf insulin use: without terminal block assembler use Diabetes mellitus complication status: without complication Qualified Code(s): E11.9 - Type 2 diabetes mellitus without complications Plan: In-office HgbA1c done today is at 5.4%; this was at 8.0% about 6 months ago in October 2024 - goal is at least <7.0% Reinforced diabetic diet Continue Metformin 1000 mg BID, Januvia 100 mg QD and Glimepiride 2 mg Q AM Per request, Rx for glucometer lancets refilled Plan To return as scheduled next month for his annual physical examination Orders: Orders AMB Hemoglobin A1c Today Z13.9 - Encounter for screening, unspecified UA CC w/rflx Micro + Cult Today N50.812 - Left testicular pain Medications: New sulfamethoxazole-trimethoprim 800-160 mg (Bactrim DS) 1 tab PO BID 20 tabs 0RF 10 days Refilled lancets (FreeStyle Lancets) USE TO TEST BLOOD SUGAR TWICE DAILY DIRECTED 100 ea 11RF E11.9 - Type 2 diabetes mellitus without complications
== END 2025-04-27 10:42 | disposition home or self-care (01) ==
LOC: HO.HMCH 09:11
PROVIDERS: PCP Internal Medicine; Visit Provider Internal Medicine
DX: N50.812 Left testicular pain (principal); E11.9 Type 2 diabetes mellitus without complications; Z13.9 Encounter for screening, unspecified

== ENCOUNTER → 2025-04-27 09:10 | Outpatient (BNVA) | payer MEDICARE, MEDICAID, SELFPAY | PROVIDERS: PCP Internal Medicine; Visit Provider Internal Medicine | DX: N50.812 Left testicular pain (principal); E11.9 Type 2 diabetes mellitus without complications | CPT/HCPCS: 83036; 96127; 99212 ==

== ENCOUNTER 2025-05-04 15:30 | Outpatient (REF) | payer MEDICARE, MEDICAID, SELFPAY ==
[2025-05-04 15:36] LABS: Appearance Urine Clear; Glucose Urine UA Negative (Negative); PH 5.5 (5.0-9.0); Specific Gravity - Urine 1.025 (1.005-1.025); UMIC TRIGGER UACC YES
== END 2025-05-04 15:31 | disposition home or self-care (01) ==
LOC: HO.LNP 15:30
PROVIDERS: Visit Provider Internal Medicine
DX: N50.812 Left testicular pain (principal)
CPT/HCPCS: 81001

== ENCOUNTER 2025-05-14 12:01 | Outpatient (AMB) | payer MEDICARE, MEDICAID, SELFPAY ==
[2025-05-14 12:03] VITALS: BMI 49.2
--- NOTE | 2025-05-14 12:03 | MHC.PC.OV ---
Vital Signs 05/14/25 12:03 Height 5 ft 2 in Weight 269 lb BMI 49.2 Blood Pressure Location Lt brachial Position Sitting Pulse Source Pulse Oximeter Oxygen Delivery Method Room Air Intake Visit Reasons: Annual Exam Allergies No Known Allergies (No Known Allergies*) Allergy (Verified 05/14/25 12:28) Medication List - Last Reconciled 05/14/25 by Rajinder Osborn MD blood sugar diagnostic (FreeStyle Lite Strips) As directed TWICE A DAY clonidine HCl 1 tablet in AM and 2 tablets at bedtime PO 2 times a day; 30 days glimepiride 2 mg PO QAM 90 days lancets once a day or as directed - Dx: E11.9 (diabetes) lancets (FreeStyle Lancets) USE TO TEST BLOOD SUGAR TWICE DAILY DIRECTED lancets (FreeStyle Lancets) USE TO TEST BLOOD SUGAR TWICE DAILY DIRECTED metformin 1,000 mg PO BID multivitamin (Daily-Graham tablet) 1 tab PO DAILY sitagliptin phosphate (Januvia) 100 mg PO DAILY sulfamethoxazole-trimethoprim 800-160 mg (Bactrim DS) 1 tab PO BID 10 days Tobacco use date assessed: 04/27/25 Dental Screening Dental Screen Date: 04/27/25 HPI Annual Exam HPI Details Patient comes in today for his annual physical examination - is accompanied as usual by his father His father states that patient is doing well overall and that his FBS earlier this morning around 5:30 am was at 127 mg/dl We have not been able to get patient to go for labs over the years other than an occasional in-office HgbA1c if he allows it due to his psychiatric/cognitive dysfunction Per his father, patient is otherwise reportedly doing well States that he again spent a lot of time in the pool during the summer but now that the weather is colder and the pools are closed, he spends most of his time in his bedroom playing on his own (no electronics or computers) Patient has not had any issues with acute headaches or dizziness lately Has had no complaints of chest pains and has not had any SOB or respiratory issues lately States that patient eats well and has not had any abdominal complaints; he reportedly moves his bowels regularly and has had no acute urinary issues He will need his physical and application form to his day program completed [facility] Medical History Morbid obesity with BMI of 45.0-49.9, adult Obesity (BMI 30-39.9) Autism Vitamin D deficiency Mixed hyperlipidemia Diabetes mellitus Surgical History No pertinent past surgical history Family History Father Hyperlipidemia Hypertension Diabetes Mother Prediabetes Hyperlipidemia Hypertension History of carpal tunnel release Social History Housing: House Alcohol intake: never Patient Tobacco Use Status: Never used Tobacco Tobacco use type: Cigarette e-Cigarette/Vaping Use: Never Used Second Hand Smoke Exposure: No service: No Current occupational status: disabled Cognitive needs: Yes (Autism) Hearing needs: No Vision needs: No Questionnaire PHQ-9 Over the last 2 weeks, how often have you been bothered by any of the following problems? 1. Little interest or pleasure in doing things: several days 2. Feeling down, depressed, or hopeless: not at all 3. Trouble falling or staying asleep, or sleeping too much: not at all 4. Feeling tired or having little energy: not at all 5. Poor appetite or overeating: not at all 6. Feeling bad about yourself - or that you are a failure or have let yourself or your family down: not at all 7. Trouble concentrating on things, such as reading the newspaper or watching television: not at all 8. Moving or speaking so slowly that other people could have noticed. Or the opposite - being so fidgety or restless that you have been moving around a lot more than usual: not at all 9. Thoughts that you would be better off or of hurting yourself in some way: not at all Total score: 1 Depression Screening Interpretation: Negative Depression Screening Done: Yes 09214 - PHQ-9 Billing: Yes Source: Developed by Drs. Mat Gates, Dora Ortiz, Sterling Gilliam and colleagues, with an educational brianna from [employer] Thrive Questionnaire Date Thrive assessed: 05/14/25 I am a: Patient What is your living situation today?: I have a steady place to live Within the past 12 months, did the food you bought not last and you didn't have the money to get more?: I choose not to answer this question Within the past 12 months, did you worry whether your food would run out before you got money to buy more?: I choose not to answer this question Do you have trouble paying for medicines?: No Do you have trouble getting transportation to medical appointments?: No Do you have trouble paying your heating and electricity bill?: No Do you have trouble taking care of your child, family member or friend?: No Do you have trouble with day-to-day activities such as bathing, preparing meals, shopping, managing finances, etc.?: No Are you currently unemployed and looking for a job?: Yes Are you interested in more education?: No Please select the resources that you would like help with: None Currently or been in a relationship where the following occur: No concerns reported THRIVE Score: 0 AUDIT C Alcohol Use Questionnaire (AUDIT-C) 1. How often do you have a drink containing alcohol?: Never Total Score: 0 Score Reviewed/Action Taken: No JODI-7 AMB Questionnaire JODI-7 Date JODI - 7 assessed: 11/06/24 Source: Developed by Drs. Mat Gates, Dora Ortiz, Sterling Gilliam and colleagues, with an educational brianna from [employer] Review of Systems Const Details: ROS is limited and information is provided primarily by patient's father/family as he is unable to verbalize or communicate appropriately due to his psychiatric and cognitive issues Denies chills, Denies difficulty sleeping, Denies fatigue, Denies fever(s) and Denies headache(s) ENT Denies dysphagia, Denies dizziness, Denies otalgia, Denies headache(s), Denies neck pain and Denies sore throat Card Denies chest pain, Denies palpitations and Denies dyspnea Resp Denies chest congestion, Denies cough and Denies dyspnea GI Denies abdominal pain, Denies constipation, Denies dysphagia, Denies diarrhea, Denies nausea and Denies vomiting Denies difficulty urinating, Denies dysuria, Denies nocturia, Denies testicular pain and Denies urinary frequency Musc Denies back pain and Denies neck pain Skin/Breast Denies rash Neuro Denies behavioral changes, Denies dizziness and Denies headache(s) Psych Details: is autistic Denies behavioral changes Endo Denies fatigue and Denies palpitations Physical exam (Primary Care) Vital Signs: Oxygen Delivery Method Room Air 05/14/25 12:03 BMI result Body Mass Index 49.2 Tobacco/Smoking Status: Tobacco use Status Tobacco use date assessed 04/27/25 05/14/25 12:07 Patient Tobacco Use Status Never used Tobacco 05/14/25 12:07 Tobacco use type Cigarette 05/14/25 12:07 e-Cigarette/Vaping Use Never Used 05/14/25 12:07 Depression Screening Interpretation: Negative Thrive Assessment: Date of Thrive Assessment Date Thrive assessed 04/27/25 05/14/25 12:07 Currently or been in a relationship where the following occur: No concerns reported Const Other: Physical exam is also limited to what patient will allow us to do; he is unable to fully cooperate with exam due to his cognitive and psychiatric issues General: comfortable, no acute distress and alert Limitations: behavioral limitations (is autistic) HENMT Head: Yes normocephalic Ears: TM's normal bilaterally and EAC's normal Face and sinus: Yes face symmetric Throat: Yes posterior oropharynx normal and Yes tonsils normal Neck Neck: Yes supple and No lymphadenopathy Thyroid: Thyroid normal Resp Auscultation: clear to auscultation bilaterally, no rales and no wheezes Cardio Rate: regular rate Rhythm: regular rhythm Heart sounds: no murmurs GI Palpation (GI): Soft to palpation and nontender Auscultation: normal bowel sounds General: Yes no CVA tenderness Scrotum: testes descended bilaterally Back/Spine/Pelvis Back: no CVA tenderness Thoracic/Lumbar Spine: No lumbar spinal tenderness Skin Rashes: no rashes Neuro General: moves all extremities and no focal motor deficits Cognition (Neuro): abnormal cognition (is autistic) Gait exam (Neuro): Normal gait present Extrem General: Yes no clubbing, cyanosis or edema Coding Level of Care Code Est Pt Prev Care 40-64y(88354) Diagnoses Annual physical exam Z00.00 Type 2 diabetes mellitus without complication, without long-term current use of insulin E11.9 Diabetes mellitus complication status: without complication Diabetes mellitus nursing home insulin use: without termite control technician use Diabetes mellitus type: type 2 Mixed hyperlipidemia E78.2 Vitamin D deficiency E55.9 Autism F84.0 Morbid obesity with BMI of 45.0-49.9, adult E66.01; Z68.42 Additional Codes PHQ-9 - 12252 - PHQ-9 Billing: Yes ([id number]) Assessment & Plan Assessment & Plan (1) Annual physical exam: Code(s): Z00.00 - Encounter for general adult medical examination without abnormal findings Category: Medical Plan: Per his father, patient is currently doing well We have not been able to get patient to go for labs over the years other than an occasional in-office HgbA1c if he allows it due to his psychiatric/cognitive dysfunction - he is unable to cooperate with blood draws (2) Diabetes mellitus: Code(s): E11.9 - Type 2 diabetes mellitus without complications Category: Medical Qualifiers: Diabetes mellitus complication status: without complication Diabetes mellitus nursing home insulin use: without nursing home use Diabetes mellitus type: type 2 Qualified Code(s): E11.9 - Type 2 diabetes mellitus without complications Plan: In-office HgbA1c done last month was at 5.4%; this was previously at 8.0% back in October 2024 - goal is at least <7.0% Reinforced diabetic diet to his father/family, as patient is unable to care for himself and is dependent on his family for his ADLs Continue Metformin 1000 mg BID, Januvia 100 mg QD and Glimepiride 2 mg Q AM (3) Mixed hyperlipidemia: Code(s): E78.2 - Mixed hyperlipidemia Category: Medical Plan: Reinforced low cholesterol diet Has not had any follow up labs done over the past few years, as patient is not able to cooperate for his lab draws and we can only get his labs done whenever he needs to be sedated for some procedure Family is aware to contact us for lab orders if he gets scheduled for any procedures in the future that he will need to be sedated for (4) Vitamin D deficiency: Code(s): E55.9 - Vitamin D deficiency, unspecified Category: Medical Plan: Will recheck his Vitamin D level whenever it is possible to get labs done on him (5) Autism: Code(s): F84.0 - Autistic disorder Category: Medical Plan: Continue Clonidine 0.2 mg 1 tablet in AM and 2 tablets at bedtime Follow up with psychiatry as scheduled (6) Morbid obesity with BMI of 45.0-49.9, adult: Code(s): E66.01 - Morbid (severe) obesity due to excess calories; Z68.42 - Body mass index [BMI] 45.0-49.9, adult Category: Medical Plan: Reinforced diet/exercise as tolerated/lose weight - have reminded his family to help him with this as he himself is not expected to be able to do on his own due to his cognitive and psychiatric issues Plan Follow up in 6 months
== END 2025-05-14 12:41 | disposition home or self-care (01) ==
LOC: HO.HMCH 12:02
PROVIDERS: PCP Internal Medicine; Visit Provider Internal Medicine
DX: Z00.00 Encounter for general adult medical examination without abnormal findings (principal); E11.9 Type 2 diabetes mellitus without complications; E66.01 Morbid (severe) obesity due to excess calories; Z68.42 Body mass index [BMI] 45.0-49.9, adult; E78.2 Mixed hyperlipidemia; E55.9 Vitamin D deficiency, unspecified; F84.0 Autistic disorder

== ENCOUNTER → 2025-05-14 12:01 | Outpatient (BNVA) | payer MEDICARE, MEDICAID, SELFPAY | PROVIDERS: PCP Internal Medicine; Visit Provider Internal Medicine | DX: Z00.00 Encounter for general adult medical examination without abnormal findings (principal); E11.9 Type 2 diabetes mellitus without complications; E78.2 Mixed hyperlipidemia; E55.9 Vitamin D deficiency, unspecified; F84.0 Autistic disorder; E66.01 Morbid (severe) obesity due to excess calories; Z68.42 Body mass index [BMI] 45.0-49.9, adult; Z13.31 Encounter for screening for depression | CPT/HCPCS: 96127; 99396 ==

== ENCOUNTER 2025-06-25 16:13 | Outpatient (AMB) | payer MEDICARE, MEDICAID, SELFPAY ==
--- NOTE | 2025-06-25 16:21 | MHC.PC.OV ---
Vital Signs 06/25/25 16:27 Height 5 ft 2 in Weight 266 lb BMI 48.6 BP 120/78 Blood Pressure Location Lt brachial Position Sitting Pulse 122 H Pulse Source Pulse Oximeter Pulse Oximetry (%) 95 Oxygen Delivery Method Room Air Intake Visit Reasons: Testical hardness and discharge Upper Cutter Required: No Accompanied by: Father Allergies No Known Allergies (No Known Allergies*) Allergy (Verified 06/25/25 16:35) Medication List - Last Reconciled 06/25/25 by UBALDO Gomez blood sugar diagnostic (FreeStyle Lite Strips) As directed TWICE A DAY clonidine HCl 1 tablet in AM and 2 tablets at bedtime PO 2 times a day; 30 days glimepiride 2 mg PO QAM 90 days lancets once a day or as directed - Dx: E11.9 (diabetes) lancets (FreeStyle Lancets) USE TO TEST BLOOD SUGAR TWICE DAILY DIRECTED lancets (FreeStyle Lancets) USE TO TEST BLOOD SUGAR TWICE DAILY DIRECTED metformin 1,000 mg PO BID multivitamin (Daily-Graham tablet) 1 tab PO DAILY sitagliptin phosphate (Januvia) 100 mg PO DAILY sulfamethoxazole-trimethoprim 800-160 mg (Bactrim DS) 1 tab PO BID 10 days Tobacco use date assessed: 06/25/25 Dental Screening Dental Screen Date: 06/25/25 Did you have a dental visit in the last 12 months?: No Did you have a dental problem in the last 6 months where you did not have access to dental care?: No Was dental information given to patient?: No HPI Testical hardness and discharge HPI Details The patient is a 40-year-old autistic male. He is accompanied by 3 family members. The patient father reports that he found the patient incontinent of urine and the urine had a strong odor. He also reports that while assisting the patient to clean up he felt a firm area on 1 of his scrotum. Patient father reports that the patient also had a change in behavior, which he attributed to possibly being constipated because this behavior changed after he was given laxative and had a bowel movement. The patient is autistic and gets extremely scared and aggressive when touched. Unable to complete assessment on genitals. The patient shoats out intermittently and has to be consoled by father. The patient was already ordered an ultrasound of the scrotum by his PCP and has a pending appointment to complete the tests. There is a concern that the patient might not stay still long enough for test to be completed. [facility] Medical History Morbid obesity with BMI of 45.0-49.9, adult Obesity (BMI 30-39.9) Autism Vitamin D deficiency Mixed hyperlipidemia Diabetes mellitus Surgical History No pertinent past surgical history Family History Father Hyperlipidemia Hypertension Diabetes Mother Prediabetes Hyperlipidemia Hypertension History of carpal tunnel release Social History Housing: House Alcohol intake: never Patient Tobacco Use Status: Never used Tobacco Tobacco use type: Cigarette e-Cigarette/Vaping Use: Never Used Second Hand Smoke Exposure: No service: No Current occupational status: disabled Cognitive needs: Yes (Autism) Hearing needs: No Vision needs: No Questionnaire PHQ-9 Over the last 2 weeks, how often have you been bothered by any of the following problems? 1. Little interest or pleasure in doing things: several days 2. Feeling down, depressed, or hopeless: not at all 3. Trouble falling or staying asleep, or sleeping too much: not at all 4. Feeling tired or having little energy: not at all 5. Poor appetite or overeating: not at all 6. Feeling bad about yourself - or that you are a failure or have let yourself or your family down: not at all 7. Trouble concentrating on things, such as reading the newspaper or watching television: not at all 8. Moving or speaking so slowly that other people could have noticed. Or the opposite - being so fidgety or restless that you have been moving around a lot more than usual: not at all 9. Thoughts that you would be better off or of hurting yourself in some way: not at all Total score: 1 Depression Screening Interpretation: Negative Depression Screening Done: Yes Source: Developed by Drs. Mat Gates, Dora Ortiz, Sterling Gilliam and colleagues, with an educational brianna from [employer]. Thrive Questionnaire Date Thrive assessed: 06/25/25 I am a: Patient What is your living situation today?: I have a steady place to live Within the past 12 months, did the food you bought not last and you didn't have the money to get more?: I choose not to answer this question Within the past 12 months, did you worry whether your food would run out before you got money to buy more?: I choose not to answer this question Do you have trouble paying for medicines?: No Do you have trouble getting transportation to medical appointments?: No Do you have trouble paying your heating and electricity bill?: No Do you have trouble taking care of your child, family member or friend?: No Do you have trouble with day-to-day activities such as bathing, preparing meals, shopping, managing finances, etc.?: No Are you currently unemployed and looking for a job?: Yes Are you interested in more education?: No Please select the resources that you would like help with: None Currently or been in a relationship where the following occur: No concerns reported THRIVE Score: 0 AUDIT C Alcohol Use Questionnaire (AUDIT-C) 1. How often do you have a drink containing alcohol?: Never 3. How often do you have six or more drinks on one occasion?: Never Total Score: 0 Score Reviewed/Action Taken: No JODI-7 AMB Questionnaire JODI-7 Date JODI - 7 assessed: 06/25/25 Feeling nervous, anxious, or on edge: 0 = Not at all Not being able to stop or control worryin = Not at all Worrying too much about different things: 0 = Not at all Trouble relaxin = Not at all Being so restless that it is hard to sit still: 0 = Not at all Becoming easily annoyed or irritable: 0 = Not at all Feeling afraid as if something awful might happen: 0 = Not at all Total JODI-7 score (0-4 normal; 5-9 mild; 10-14 moderate; 15-21 severe): 0 Source: Developed by Drs. Mat Gates, Dora Ortiz, Sterling Gilliam and colleagues, with an educational brianna from [employer]. Review of Systems Narrative Information is taken from the patient father Ángel the patient is unable to voice his concerns because of his cognitive status Const Denies body aches, Denies chills, Denies fever(s), Denies headache(s) and Denies poor appetite Eyes Reports no additional complaints ENT Denies dysphagia, Denies dizziness, Denies headache(s) and Denies odynophagia Card Denies chest pain, Denies syncope, Denies edema, Denies irregular heart rhythm, Denies lightheadedness and Denies dyspnea Resp Denies cough and Denies dyspnea GI Denies abdominal pain, Reports constipation, Denies dysphagia, Denies diarrhea, Denies nausea, Denies odynophagia and Denies vomiting Reports testicular mass and Reports other (Malodorous urine) Musc Reports no additional complaints and Denies abnormal gait Skin/Breast Reports system reviewed and no additional complaints, except as documented Neuro Denies abnormal gait, Denies dizziness, Denies syncope and Denies headache(s) Psych Reports anxiety Physical exam (Primary Care) Vital Signs: Last Vital Signs Pulse 122 H 06/25/25 16:27 BP 120/78 06/25/25 16:27 Pulse Ox 95 06/25/25 16:27 Oxygen Delivery Method Room Air 06/25/25 16:27 BMI result Body Mass Index 48.6 Tobacco/Smoking Status: Tobacco use Status Tobacco use date assessed 06/25/25 06/25/25 16:29 Patient Tobacco Use Status Never used Tobacco 06/25/25 16:23 Tobacco use type Cigarette 06/25/25 16:23 e-Cigarette/Vaping Use Never Used 06/25/25 16:23 PHQ-9: PHQ-9 Score PHQ-9: Total score 1 06/27/25 19:45 Depression Screening Interpretation: Negative Thrive Assessment: Date of Thrive Assessment Date Thrive assessed 06/25/25 06/25/25 16:29 Currently or been in a relationship where the following occur: No concerns reported Const Other: Physical exam is also limited to what patient will allow us to do; he is unable to fully cooperate with exam due to his cognitive and psychiatric issues General: comfortable, no acute distress and alert Limitations: behavioral limitations (is autistic) [facility] Head: Yes normocephalic Ears: hearing grossly normal bilaterally Face and sinus: Yes face symmetric Throat: Yes posterior oropharynx normal and Yes tonsils normal Neck Neck: Yes supple and No lymphadenopathy Thyroid: Thyroid normal Resp Auscultation: clear to auscultation bilaterally, no rales and no wheezes Cardio Rate: regular rate Rhythm: regular rhythm Heart sounds: no murmurs GI Palpation (GI): Soft to palpation and nontender Auscultation: normal bowel sounds General: Yes no CVA tenderness Scrotum: testes descended bilaterally (Per father count) and scrotal mass (Reported by father) Back/Spine/Pelvis Back: no CVA tenderness Thoracic/Lumbar Spine: No lumbar spinal tenderness Skin Rashes: no rashes Neuro General: moves all extremities and no focal motor deficits Cognition (Neuro): abnormal cognition (is autistic) Gait exam (Neuro): Normal gait present Extrem General: Yes no clubbing, cyanosis or edema Coding Level of Care Code Est Pt Level 3 (74936) Diagnoses Scrotal mass N50.89 Malodorous urine R82.90 Change in behavior R46.89 Time Spent (min) 27 Assessment & Plan Assessment & Plan (1) Scrotal mass: Code(s): N50.89 - Other specified disorders of the male genital organs Category: Medical Plan: The patient father reports feeling a hard scrotal mass while helping the patient to clean up. The patient is autistic does not like to be touched. I was unable to complete an exam of his periarea. The patient already has an ultrasound ordered and scheduled due to previous complain of scrotal pain. There is concerns that the patient will not stay still long enough for exam. Ativan 0.5 mg p.r.n. x 2 doses ordered to be given preprocedure. (2) Malodorous urine: Code(s): R82.90 - Unspecified abnormal findings in urine Category: Medical Plan: On urinalysis ordered. We will treat the patient prophylactically in the meantime. Bactrim-DS b.i.d. times 10 days ordered. (3) Change in behavior: Code(s): R46.89 - Other symptoms and signs involving appearance and behavior Category: Medical Plan: The patient father reports change in behavior. Given the reports of malodorous urine, there is a concern for UTI. Prophylactic treatment was given. Orders: Orders UA CC w/rflx Micro + Cult 06/25/25 R31.9 - Hematuria, unspecified Urine Cytology 06/25/25 R31.9 - Hematuria, unspecified Medications: New sulfamethoxazole-trimethoprim 800-160 mg (Bactrim DS) 1 tab PO BID 20 tabs 0RF 10 days lorazepam (Ativan) take one hour before procedure, may take the other tablet if the first dose was ineffective 0.5 mg PO ONCE PRN 2 tabs 0RF anxiety Discontinued sulfamethoxazole-trimethoprim 800-160 mg (Bactrim DS) Discontinued Reason: Patient Completed Course 1 tab PO BID 10 days 20 tabs 0RF
[2025-06-25 16:27] VITALS: BP 120/78; PULSE 122; O2SAT 95; BMI 48.6
== END 2025-06-25 17:21 | disposition home or self-care (01) ==
LOC: HO.HMCH 16:14
PROVIDERS: PCP Internal Medicine
DX: N50.89 Other specified disorders of the male genital organs (principal); R82.90 Unspecified abnormal findings in urine; R46.89 Other symptoms and signs involving appearance and behavior

== ENCOUNTER → 2025-06-25 16:13 | Outpatient (BNVA) | payer MEDICARE, MEDICAID, SELFPAY | PROVIDERS: PCP Internal Medicine | DX: R31.9 Hematuria, unspecified (principal); R82.90 Unspecified abnormal findings in urine; R46.89 Other symptoms and signs involving appearance and behavior; N50.89 Other specified disorders of the male genital organs; Z13.31 Encounter for screening for depression; Z13.39 Encounter for screening examination for other mental health and behavioral disorders | CPT/HCPCS: 96127; 99212 ==

== ENCOUNTER 2025-07-02 17:49 | Outpatient (REF) | payer MEDICARE, MEDICAID, SELFPAY ==
[2025-07-02 18:51] LABS: Appearance Urine Clear; Glucose Urine UA Negative (Negative); PH 6.0 (5.0-9.0); Specific Gravity - Urine 1.020 (1.005-1.025); UMIC TRIGGER UACC YES
== END 2025-07-02 17:50 | disposition home or self-care (01) ==
LOC: HO.LNP 17:49
DX: R31.9 Hematuria, unspecified (principal)
CPT/HCPCS: 81001; 81003; 88112

== ENCOUNTER 2025-07-07 23:41 | Emergency (ER) | payer MEDICARE, MEDICAID, SELFPAY ==
--- NOTE | ~2025-07-07 | CT_ITS ---
CLINICAL HISTORY: LLQ pain, scrotal pain CT abdomen and pelvis with contrast Comparison: None provided Findings: Evaluation limited by significant respiratory motion. Visualized heart, vascular structures, mediastinum, and bilateral danica are unremarkable. Grossly clear lung bases. Gallbladder unremarkable. Left kidney with moderate hydroureteronephrosis and perinephric fat stranding secondary to an obstructing 0.4 cm distal left ureteral stone. Additional nonobstructing stones in the lower pole of the left kidney. Right kidney is unremarkable without stones, hydronephrosis, or hydroureter. Other solid organs unremarkable. No bowel obstruction, pneumoperitoneum, or pneumatosis. Appendix not clearly visualized. Pelvic contents unremarkable. Osseous structures are unremarkable. IMPRESSION: Evaluation limited by significant respiratory motion 0.4 cm obstructing distal left ureteral stone with moderate hydroureteronephrosis This document has been electronically signed by: Randy Bhatti MD on 07/08/2025 03:56:47
[2025-07-07 23:49] VITALS: PULSE 108; RESP 18; TEMP 36.8; O2SAT 97; BMI 49.1
[2025-07-08] MEDS: OLANZapine 10 MG VIAL IM (01:15)
[2025-07-08 01:20] VITALS: BP 149/87; PULSE 126; RESP 22; O2SAT 93
[2025-07-08 01:54] LABS: Hematocrit 48.0 % (42.0-52.0); Hemoglobin 14.9 g/dl (14.0-18.0); Imm Gran Abs Auto 0.11 X10*3/uL (0.00-0.03); Imm Gran Pct Auto 0.8 % (0.0-0.4); Lymphocytes Absolute Auto 1.5 X10*3/uL (1.2-4.9); MANUAL DIFF FLAG NO; Mean Corpuscular HGB Conc 31.0 g/dl (31.0-36.0); Mean Corpuscular Hemoglobin 23.7 pg (27.0-33.0); Mean Corpuscular Volume 76.3 fL (80.0-98.0); NRBC Abs Auto 0.000 X10*3/uL (0.0-0.012); NRBC Pct Auto 0.0 /100WBC (0.0-0.2); Platelet Count 245 X10*3/uL (160-400); Red Blood Count 6.29 X10*6/uL (4.60-5.80); White Blood Count 13.2 X10*3/uL (4.8-10.8)
[2025-07-08] MEDS: Lactated Ringers 1,000 ML 999 ML IV (01:54)
[2025-07-08 02:03] VITALS: BP 151/93; PULSE 113; O2SAT 94
[2025-07-08 02:10] LABS: Alanine Aminotransferase 38 U/L (0-40); Albumin Level 4.5 g/dL (3.5-5.0); Alkaline Phosphatase 100 U/L (39-117); Anion Gap 15 (12-20); Aspartate Amino Transferase 26 U/L (5-37); Blood Urea Nitrogen 15 mg/dL (9-16); Calcium 9.2 mg/dL (8.4-10.2); Carbon Dioxide 22 mmol/L (22-29); Chloride 108 mmol/L (96-108); Creatinine Clr Calc Pharmacy 101.6; Estimated Glomerular Filt Rate > 60; Lipase 36 U/L (8-78); Magnesium 2.0 mg/dL (1.6-2.6); Potassium 4.4 mmol/L (3.3-5.1); Sodium 141 mmol/L (135-145); Total Protein 7.1 g/dL (6.5-8.0)
[2025-07-08 02:31] LABS: Resp Syncy Virus RNA Qual PCR NEGATIVE (Negative); SARS COV2 PCR INHOUSE NEGATIVE (Negative)
[2025-07-08] MEDS: iohexoL 350 MG/ML 100 ML INFUS..BTL IV (03:10)
[2025-07-08 03:21] VITALS: BP 145/89; PULSE 96; RESP 16; O2SAT 93
--- NOTE | 2025-07-08 04:33 | ED_ITS ---
HPI - Abdominal Pain General Chief Complaint: Abdominal Pain Stated Complaint: side pain Time Seen by Provider: 07/08/25 00:14 Source: family (father, brother), RN notes reviewed and old records reviewed Mode of arrival: ambulatory Limitations: other (autism, nonverbal) History of Present Illness ED Provider: Dr. Cassi Bautista HPI narrative: Alexis is a 40-year-old male with a history of type 1 diabetes mellitus and autism who presents with his father and brother, who are his primary caregivers, for right-sided abdominal pain ?by his side.? Associated symptoms include difficulty initiating urination and passing stool. Patient had several small bowel movements earlier this evening, without blood or large stool volume. Two urine samples obtained today were grossly positive for blood per outside and ED testing. No current vomiting; however, patient experienced fever, vomiting, and cough/cold symptoms 1?2 weeks ago and appeared to recover. Difficult bowel and bladder habits have been intermittent for weeks and were partially treated with stool softeners at home. Caregivers are also concerned that the right testicle feels firm; a scrotal ultrasound is scheduled for 08/07/25. Today?s pain is more anterior on the right; kidney stone versus constipation versus scrotal pathology discussed. Patient's father denies testicular pain. Related Data Previous Rx's ?Medication ?Instructions ?Recorded multivitamin (Daily-Graham tablet) 1 tab PO DAILY #90 ta bs 02/14/21 lancets 28 gauge #100 ea 10/14/21 clonidine HCl 0.2 mg tablet See Rx Instructions PO BID 05/10/23 anxiety/agitation 30 days #90 tabs blood sugar diagnostic (FreeStyle #100 ea 06/06/24 Lite Strips) lancets 28 gauge (FreeStyle #100 ea 11/04/24 Lancets) lancets 28 gauge (FreeStyle #100 ea 04/27/25 Lancets) glimepiride 2 mg tablet 2 mg PO QAM 90 days #90 tabs 05/05/25 sitagliptin phosphate 100 mg 100 mg PO DAILY #90 tabs 05/05/25 tablet (Januvia) metformin 1,000 mg tablet 1,000 mg PO BID #180 tabs hydrocodone 5 mg-acetaminophen 325 1 tab PO Q6H PRN se anders pain 07/08/25 mg tablet (scale score 7-10) #10 tabs ibuprofen 600 mg tablet 600 mg PO Q8H PRN fever or p ain 07/08/25 #30 tabs ondansetron 4 mg disintegrating 4 mg PO Q8H PRN nausea and 07/08/25 tablet vomiting #10 tabs tamsulosin 0.4 mg capsule 0.4 mg PO BEDTIME #7 caps alprazolam 1 mg tablet 1 mg PO ONCE PRN anxiety #2 tabs 07/10/25 Allergies Allergy/AdvReac Type Severity Reaction Status Date / Time No Known Allergies (No Known Allergy Verified 07/10/25 16:22 Allergies*) Review of Systems Review of Systems as per HPI, full review of systems performed and negative but for the above mentioned pertinent positives and negatives. Yes Unobtainable due to mental condition PMFSH Past Medical History Medical History Morbid obesity with BMI of 45.0-49.9, adult Obesity (BMI 30-39.9) Autism Vitamin D deficiency Mixed hyperlipidemia Diabetes mellitus Surgical History No pertinent past surgical history Family History Family History Father Hyperlipidemia Hypertension Diabetes Mother Prediabetes Hyperlipidemia Hypertension History of carpal tunnel release Social History Social History Housing: House Alcohol intake: never Patient Tobacco Use Status: Never used Tobacco Tobacco use type: Cigarette e-Cigarette/Vaping Use: Never Used Second Hand Smoke Exposure: No service: No Current occupational status: disabled Cognitive needs: Yes (Autism) Hearing needs: No Vision needs: No Physical Exam ED Exam Exam: GENERAL: Ill-Appearing, appears uncomfortable, nonverbal. SKIN: Normal skin color for ethnicity, warm, dry, no rashes noted. HEENT:? Normocephalic, atraumatic, no stridor, dry mucous membranes, dentition intact, EOMI. NECK: Soft, supple, full ROM, midline structures nontender, no step-offs, no deformities, no lymphadenopathy. CHEST: Heart regular tachycardia, no murmurs, symmetric chest rise and fall. PULMONARY: Clear to auscultation bilaterally, diminished at the bases, no labored breathing, no wheezes/rhales/rhonchi. ABDOMINAL: Softly distended, nontender to palpation, quiet bowel sounds in all quadrants. : Deferred. MUSCULOSKELETAL: Normal tone, full range of motion, no deformities, no peripheral edema. NEURO: Alert, does not converse, speaks in grunts/shouts sounds, equal strength and sensation bilateral upper and lower extremities, no focal neurologic deficits.? PSYCHIATRIC: Flat affect, poor eye contact. Vital Signs: Vital Signs - 24 hr 07/07/25 23:49 07/08/25 01:20 07/08/25 02:03 Temperature 98.2 F Pulse Rate 108 H 126 H 113 H Respiratory Rate 18 22 H Blood Pressure 149/87 H 151/93 H Pulse Oximetry 97 93 94 Oxygen Delivery Method Room Air Room Air Blow By Oxygen Flow Rate 10 07/08/25 03:21 Temperature Pulse Rate 96 Respiratory Rate 16 Blood Pressure 145/89 H Pulse Oximetry 93 Oxygen Delivery Method Room Air Oxygen Flow Rate BMI result Body Mass Index 49.1 Medical Decision Making Medical Decision Making MDM Narrative: Emergency Department Course ? Two urine specimens today demonstrated gross hematuria. ? Analgesia/sedation plan: IM medication followed by peripheral IV placement after sedation. ? Imaging: CT abdomen/pelvis obtained STAT and extended inferiorly for limited scrotal views. ? Result: 4 mm obstructing calculus at the left ureter; no hydronephrosis; limited scrotal images nondiagnostic for mass. ? Respiratory viral panel and rapid strep swab were planned to be collected after sedation due to recent fever and cough/cold symptoms; testing pending. ? NPO status maintained in case further intervention was needed. ? Differential diagnosis discussed: ureterolithiasis (confirmed), constipation contributing to discomfort, scrotal/testicular pathology, (outpatient US pending), vascular pathology, among others. Assessment & Plan Diagnoses: 1. Left ureteral nephrolithiasis (4 mm obstructing stone) with right-sided abdominal pain and hematuria. 2. Constipation, chronic/recurrent. 3. Scrotal/testicular firmness by caregiver report ? outpatient ultrasound scheduled Jul. 4. Type 1 diabetes mellitus. 5. Autism spectrum disorder. Plan: * Analgesia provided during visit; caregivers advised to use [id number] pain control at home as tolerated. * Encouraged liberal oral hydration to facilitate stone passage. * Resume regular bowel regimen; may add polyethylene glycol if stool remains scant. * Outpatient follow-up: ??? Primary care physician within 1 week. ??? Urology for stone management and review of CT findings. ??? Maintain scheduled scrotal ultrasound on Jul. * Return precautions reviewed: fever, inability to urinate, worsening pain, vomiting, or gross hematuria. * Caregivers preferred discharge; patient discharged home in stable condition with above instructions. Disposition Discharged home with father and brother. Verbal instructions provided; caregivers preferred discharge home. Differential Diagnosis Differential Diagnoses: The differential diagnosis associated with the presentation includes (as above) Admission/Observation Consideration of admission/observation: Escalation of care including admission/observation considered Lab Data MDM Lab Attestation statement: I reviewed the patient's lab results. 07/08/25 01:49 07/08/25 01:49 Labs: Lab Results 07/08/25 Range/Units 01:49 WBC 13.2 H (4.8-10.8) X10*3/uL RBC 6.29 H (4.60-5.80) X10*6/uL Hgb 14.9 (14.0-18.0) g/dl Hct 48.0 (42.0-52.0) % MCV 76.3 L (80.0-98.0) fL MCH 23.7 L (27.0-33.0) pg MCHC 31.0 (31.0-36.0) g/dl RDW 18.4 H (11.0-16.0) % Plt Count 245 (160-400) X10*3/uL MPV 8.4 L (9.4-12.4) fL Immature Gran % (Auto) 0.8 H (0.0-0.4) % Neut % (Auto) 79.4 H (45-73) % Lymph % (Auto) 11.6 L (20-40) % [place] % (Auto) 6.9 (2-11) % Eos % (Auto) 0.8 (0-4) % Baso % (Auto) 0.5 (0-2) % Lymph # (Auto) 1.5 (1.2-4.9) X10*3/uL [place] # (Auto) 0.9 (0.1-1.2) X10*3/uL Eos # (Auto) 0.1 (0.0-0.4) X10*3/uL Baso # (Auto) 0.1 (0.0-0.2) X10*3/uL Abs Immat Gran (auto) 0.11 H (0.00-0.03) X10*3/uL Absolute Neuts (auto) 10.5 H (2.0-8.3) x10*3/uL Absolute Nucleated RBC 0.000 (0.0-0.012) X10*3/uL Nucleated RBC % (auto) 0.0 (0.0-0.2) /100WBC Sodium 141 (135-145) mmol/L Potassium 4.4 (3.3-5.1) mmol/L Chloride 108 (96-108) mmol/L Carbon Dioxide 22 (22-29) mmol/L Anion Gap 15 (12-20) BUN 15 (9-16) mg/dL Creatinine 1.09 (0.5-1.4) mg/dL Estim Creat Clear Calc 101.6 Estimated GFR > 60 Random Glucose 172 H (60-115) mg/dL Calcium 9.2 (8.4-10.2) mg/dL Magnesium 2.0 (1.6-2.6) mg/dL Total Bilirubin 0.3 (0.0-1.0) mg/dL AST 26 (5-37) U/L ALT 38 (0-40) U/L Alkaline Phosphatase 100 (39-117) U/L Total Protein 7.1 (6.5-8.0) g/dL Albumin 4.5 (3.5-5.0) g/dL Lipase 36 (8-78) U/L Influenza Type A (PCR) NEGATIVE (Negative) Influenza Type B (PCR) NEGATIVE (Negative) RSV RNA Qual (PCR) NEGATIVE (Negative) SARS-CoV-2 RNA (RT-PCR) NEGATIVE (Negative) Radiology Impression Discussion of test interpretation with radiology: I have reviewed the radiologist's reading. Radiologist Impression: CT abdomen and pelvis with contrast Comparison: None provided Findings: Evaluation limited by significant respiratory motion. Visualized heart, vascular structures, mediastinum, and bilateral danica are unremarkable. Grossly clear lung bases. Gallbladder unremarkable. Left kidney with moderate hydroureteronephrosis and perinephric fat stranding secondary to an obstructing 0.4 cm distal left ureteral stone. Additional nonobstructing stones in the lower pole of the left kidney. Right kidney is unremarkable without stones, hydronephrosis, or hydroureter. Other solid organs unremarkable. No bowel obstruction, pneumoperitoneum, or pneumatosis. Appendix not clearly visualized. Pelvic contents unremarkable. Osseous structures are unremarkable. IMPRESSION: Evaluation limited by significant respiratory motion 0.4 cm obstructing distal left ureteral stone with moderate hydroureteronephrosis Medications Administered Discontinued Medications Generic Name Dose Route Start Last Admin Trade Name Freq PRN Reason Stop Dose Admin Lactated Ringer's 1,000 mls @ 999 mls/hr 07/08/25 00:52 07/08/25 04:00 Lr IV 07/08/25 01:52 Infused .Q1H1M ONE Infusion Iohexol 100 ml 07/08/25 03:09 07/08/25 03:10 Iohexol 350 Mg/Ml 100 Ml Infus..Btl IV 07/08/25 03:10 85 ml ONCE ONE Administration Midazolam HCl 5 mg 07/08/25 00:51 07/08/25 01:15 Midazolam Hcl 5 Mg/Ml Vial IM 07/08/25 00:52 5 mg ONCE ONE Administration Midazolam HCl 5 mg 07/08/25 02:26 07/08/25 02:32 Midazolam Hcl 5 Mg/Ml Vial IVPUSH 07/08/25 02:27 5 mg ONCE ONE Administration Olanzapine 10 mg 07/08/25 00:51 07/08/25 01:15 Olanzapine 10 Mg Vial IM 07/08/25 00:52 10 mg STAT STA Administration Ondansetron HCl 4 mg 07/08/25 03:22 07/08/25 03:40 Ondansetron Hcl 4 Mg/2 Ml Vial IVPUSH 07/08/25 03:23 4 mg ONCE ONE Administration Tamsulosin HCl 0.4 mg 07/08/25 04:38 07/08/25 04:44 Tamsulosin Hcl 0.4 Mg Capsule PO 07/08/25 04:39 0.4 mg ONCE ONE Administration Discharge Plan Discharge Clinical Impression: Ureterolithiasis, Acute left flank pain, Hydroureteronephrosis Patient Disposition: Home, Self-Care Instructions: Kidney Stones (ED) Additional Instructions: You have a kidney stone that is making its way to your bladder. Kidney stones are not painful unless they are moving. Use ibuprofen (600 mg) every 8 hours for pain as needed. Be sure to eat this with food or milk to coat your stomach as it can cause stomach upset. If your pain is poorly controlled with the ibuprofen alone, you may take a dose of hydrocodone. This is a sedating medication so do not take it if you are planning on driving. Use Zofran (ondansetron) as needed for nausea. Take Flomax (tamsulosin) once a day to help the stone pass. Take this medication at night as it can drop your blood pressure and you should be lying down after taking it. Return to the emergency department immediately with any new or worsening symptoms including: Worsening pain despite medication, fevers greater than 100?, inability to tolerate food or drink despite Zofran, any new symptom that concerns you. Call 911 with any medical emergency. Prescriptions: New hydrocodone-acetaminophen 5-325 mg tablet 1 tab PO Q6H PRN (Reason: severe pain (scale score 7-10)) Qty: 10 0RF Rx Instructions: Partial Fill upon patient request. tamsulosin 0.4 mg capsule 0.4 mg PO BEDTIME Qty: 7 0RF ibuprofen 600 mg tablet 600 mg PO Q8H PRN (Reason: fever or pain) Qty: 30 0RF ondansetron 4 mg tablet,disintegrating 4 mg PO Q8H PRN (Reason: nausea and vomiting) Qty: 10 0RF No Action multivitamin [Daily-Graham] Tablet 1 tab PO DAILY Qty: 90 3RF (DME) lancets 28 gauge misc See Rx Instructions topical BID Qty: 100 5RF Rx Instructions: once a day or as directed - Dx: E11.9 (diabetes) clonidine HCl 0.2 mg tablet See Rx Instructions PO BID 30 Days Qty: 90 5RF Rx Instructions: 1 tablet in AM and 2 tablets at bedtime PO 2 times a day; (DME) FreeStyle Lite Strips Strip See Rx Instructions .Route Qty: 100 5RF Rx Instructions: As directed TWICE A DAY (DME) lancets [FreeStyle Lancets] 28 gauge misc See Rx Instructions .ROUTE .COMPLEX Qty: 100 0RF Dose Instruction: USE TO TEST BLOOD SUGAR TWICE DAILY DIRECTED Rx Instructions: USE TO TEST BLOOD SUGAR TWICE DAILY DIRECTED Januvia 100 mg tablet 100 mg PO DAILY Qty: 90 1RF glimepiride 2 mg tablet 2 mg PO QAM 90 Days Qty: 90 1RF Rx Instructions: administer with breakfast metformin 1,000 mg tablet 1,000 mg PO BID Qty: 180 1RF (DME) lancets [FreeStyle Lancets] 28 gauge misc See Rx Instructions .ROUTE .COMPLEX Qty: 100 11RF Dose Instruction: USE TO TEST BLOOD SUGAR TWICE DAILY DIRECTED Rx Instructions: USE TO TEST BLOOD SUGAR TWICE DAILY DIRECTED alprazolam 1 mg tablet 1 mg PO ONCE PRN (Reason: anxiety) Qty: 2 0RF Rx Instructions: Take one tablet an hour before procedure, may take the other tablet if the first dose was ineffective Interventions: ED Discharge Assessment Last Done: 07/08/25 04:45 Discharge Date/Time: 07/08/25 04:50 Print Language: Uzbek
[2025-07-08 04:45] VITALS: BP 145/89; PULSE 96; RESP 16; TEMP 36.6; O2SAT 93
== END 2025-07-08 04:50 | disposition home or self-care (01) ==
PROVIDERS: Emergency Provider Emergency Medicine; PCP Internal Medicine
DX: N13.2 Hydronephrosis with renal and ureteral calculous obstruction (principal); E66.01 Morbid (severe) obesity due to excess calories; Z68.42 Body mass index [BMI] 45.0-49.9, adult; F84.0 Autistic disorder; E10.9 Type 1 diabetes mellitus without complications; Z79.899 Other long term (current) drug therapy; Z03.818 Encounter for observation for suspected exposure to other biological agents ruled out
CPT/HCPCS: 36415; 74177; 80053; 83690; 83735; 85025; 87637; 99284; J2250; J2359; J2405; J7120; Q9967